=== PATIENT | male | born 1955 | race Caucasian/White ===

== ENCOUNTER 2021-07-17 18:04 | Emergency (ER) | payer BC, SELFPAY ==
[2021-07-17] VITALS (10 sets, daily range): BP systolic 90–148; BP diastolic 47–126; PULSE 51–146; RESP 16–20; TEMP 35.9–37; O2SAT 95–98; BMI 25.9
--- NOTE | 2021-07-17 | ECG_ITS ---
Test Reason : chest palpitations Blood Pressure : / mmHG Vent. Rate : 143 BPM Atrial Rate : 000 BPM P-R Int : 000 ms QRS Dur : 094 ms QT Int : 310 ms P-R-T Axes : 000 037 053 degrees QTc Int : 478 ms Atrial fibrillation with rapid ventricular response with premature ventricular or aberrantly conducted complexes Possible Inferior infarct , age undetermined Abnormal ECG No previous ECGs available Referred By: Generic ED Physician Electronically Signed By:Reji Barrett
--- NOTE | 2021-07-17 | ECG_ITS ---
Test Reason : post cardioversion Blood Pressure : / mmHG Vent. Rate : 052 BPM Atrial Rate : 052 BPM P-R Int : 162 ms QRS Dur : 102 ms QT Int : 416 ms P-R-T Axes : 047 032 045 degrees QTc Int : 386 ms Sinus bradycardia Otherwise normal ECG When compared with ECG of 17-JUL-2021 18:11, Sinus rhythm has replaced Atrial fibrillation Vent. rate has decreased BY [address] no longer depressed in Anterolateral leads T wave inversion no longer evident in Lateral leads Referred By: Giancarlo Zhang Electronically Signed By:GENIA BETH MD
--- NOTE | ~2021-07-17 | XR_ITS ---
EXAMINATION: PORTABLE CHEST 1 VIEW CLINICAL INFORMATION: afib . COMPARISON: No recent pertinent prior studies are available for comparison. TECHNIQUE: Portable frontal view of the chest was obtained. FINDINGS: The lungs are well expanded. No focal infiltrate, effusion, edema, or pneumothorax. Minimal linear subsegmental atelectasis at the left base. Cardiac and mediastinal silhouettes are within normal limits for technique. No acute bony abnormality seen. XR/XR chest 1V IMPRESSION: No evidence of acute disease.
[2021-07-17] MEDS: dilTIAZem HCL 50 MG/10 ML VIAL 25 MG IVPUSH (21:19)
[2021-07-17 21:25] LABS: MANUAL DIFF FLAG NO
[2021-07-17 21:31] LABS: Basophils Absolute Auto 0.1 X10*3/uL (0.0-0.2); Basophils Percent Auto 0.6 % (0-2); Eosinophils Absolute Auto 0.1 X10*3/uL (0.0-0.4); Eosinophils Percent Auto 1.2 % (0-4); Hematocrit 49.8 % (42.0-52.0); Hemoglobin 16.6 g/dl (14.0-18.0); Imm Gran Abs Auto 0.02 X10*3/uL (0.00-0.03); Imm Gran Pct Auto 0.2 % (0.0-0.4); Lymphocytes Absolute Auto 1.7 X10*3/uL (1.2-4.9); Lymphocytes Percent Auto 18.6 % (20-40); Mean Corpuscular HGB Conc 33.3 g/dl (31.0-36.0); Mean Corpuscular Hemoglobin 30.5 pg (27.0-33.0); Mean Corpuscular Volume 91.5 fL (80.0-98.0); Mean Platelet Volume 10.3 fL (9.4-12.4); Monocytes Absolute Auto 0.8 X10*3/uL (0.1-1.2); Monocytes Percent Auto 9.1 % (2-11); Neutrophils Absolute Auto 6.3 x10*3/uL (2.0-8.3); Neutrophils Percent Auto 70.3 % (45-73); Platelet Count 217 X10*3/uL (160-400); Red Blood Count 5.44 X10*6/uL (4.60-5.80); Red Cell Distribution Width 12.5 % (11.0-16.0)
[2021-07-17] MEDS: dilTIAZem HCL 125 MG in 0.9 % Sodium Chloride 100 ML IVCONT (21:35)
[2021-07-17 21:37] LABS: INTERNATIONAL NORM RATIO 0.9 (0.9-1.1); Prothrombin Time 10.5 SEC (9.9-13.0)
[2021-07-17 21:40] LABS: Partial Thromboplastin Time 34.7 SEC (24.1-38.0)
[2021-07-17 21:49] LABS: Alanine Aminotransferase 30 U/L (0-40); Albumin Level 4.6 g/dL (3.5-5.0); Alkaline Phosphatase 69 U/L (39-117); Anion Gap 13 (12-20); Aspartate Amino Transferase 35 U/L (5-37); Bilirubin Total 0.5 mg/dL (0.0-1.0); Blood Urea Nitrogen 14 mg/dL (9-16); Calcium 9.8 mg/dL (8.4-10.2); Carbon Dioxide 25 mmol/L (22-29); Chloride 106 mmol/L (96-108); Creatinine Clr Calc Pharmacy 95.8; Estimated Glomerular Filt Rate > 60; Glucose Random 113 mg/dL (60-115); Sodium 140 mmol/L (135-145); Total Protein 7.4 g/dL (6.5-8.0)
[2021-07-17 21:52] LABS: Troponin-I High Sensitivity 18.6 ng/L (<3.5-35.0)
--- NOTE | 2021-07-17 22:16 | ED_ITS ---
HPI - General Adult General Chief complaint: Arrhythmia/Palpitations Stated complaint: Chest Pain SOB Time Seen by Provider: 07/17/21 20:56 Source: patient History of Present Illness HPI narrative: This is a 65-year-old male who had eaten dinner at around 05:00 o'clock subsequently around 06:00 o'clock noted that his heart seemed to be fast and irregular. The patient felt slightly dizzy. He denies any chest pain or shortness of breath, nausea or sweats. Denies any prior history of an arrhythmia. He denies any history of any heart disease. He does drink a cup of coffee in the morning. He has not had any lower extremity swelling. Denies any history of thyroid disease. The patient drinks alcohol occasionally, denies regular or heavy use. Related Data Allergies Allergy/AdvReac Type Severity Reaction Status Date / Time Unable to Assess Allergy Verified 07/17/21 18:23 Review of Systems Constitutional: Constitutional: Denies excessive sweating Eyes: Eyes: Reports no additional eye complaints ENT: Reports system reviewed and no additional complaints, except as documented Cardiovascular: Cardiovascular: Reports no additional cardiovascular comp laints, Denies chest pain and Denies dyspnea Respiratory: Respiratory: Reports no additional respiratory complaints and Denies dyspnea Gastrointestinal: Gastrointestinal: Reports no additional gastrointestinal complaints Musculoskeletal: Musculoskeletal: Reports no additional musculoskeletal complaints Endocrine: Endocrine: Denies excessive sweating PMFSH Past Medical History Medical History (Updated 07/18/21 @ 01:32 by Giancarlo Zhang MD) Enlarged prostate Sleep apnea Social History Social History Advance Directives: Yes Advance Directives Information Provided: No Advance Directives on File: No Physical Exam ED Vital Signs: Vital Signs - 24 hr 07/17/21 18:20 07/17/21 21:36 07/17/21 21:47 Temperature 96.6 F L Pulse Rate 143 H 145 H 141 H Respiratory Rate 18 16 Blood Pressure 148/126 H 119/82 116/77 Pulse Oximetry 98 97 07/17/21 22:37 07/17/21 22:38 07/17/21 22:43 Temperature 98.4 F 98.4 F Pulse Rate 142 H 135 H 112 H Respiratory Rate 18 20 18 Blood Pressure 130/52 L 106/64 92/47 L Pulse Oximetry 96 98 95 07/17/21 22:44 07/17/21 22:49 07/17/21 22:54 Temperature 98.6 F Pulse Rate 60 58 55 Respiratory Rate 18 18 18 Blood Pressure 90/54 L 94/52 L 97/48 L Pulse Oximetry 96 96 97 07/17/21 23:21 Temperature Pulse Rate 51 Respiratory Rate Blood Pressure 101/50 L Pulse Oximetry 97 BMI result Body Mass Index 25.9 Const Other: No acute distress, overall well-appearing General: no acute distress Orientation/consciousness: patient oriented x3 HENMT Head: Yes normal to inspection General nose exam: Normal external nose present Mouth: moist mucous membranes Throat: Yes posterior oropharynx normal, Yes tonsils normal and Yes uvula midline Eyes Eyelids: Yes eyelids normal Conjunctivae: conjunctivae normal Pupils: Equal, round and reactive pupils present Neck Neck: Yes supple Resp Effort & Inspection: normal respiratory effort Auscultation: clear to auscultation bilaterally Cardio Rate: tachycardic Rhythm: abnormal rhythm irregularly irregular Heart sounds: S1 normal heart sound present, S2 normal heart sound present, no gallops, no murmurs and no rubs GI Inspection: No distended Palpation (GI): Soft to palpation and nontender Auscultation: normal bowel sounds Skin General skin exam: other (Warm and dry) Neuro General: patient oriented x3 and CN's II-XI intact bilaterally Cranial nerves: Yes Equal, round and reactive pupils present Extrem General: Yes no pedal edema Psych Affect: normal affect Attitude: cooperative Course Course Course Narrative: The patient had acute onset of atrial fibrillation this evening had around 18:00. His last meal had been around 17:00. Patient had apparent paroxysmal atrial fibrillation, has no prior history of this. Patient had no other concern ing symptoms. Labs were unremarkable. Electrical cardioversion under procedural sedation was done after sedation with propofol. Consent was obtained prior to the procedure, and time-out was done. The patient was cardioverted with single shock of 120 joules, synchronized. He initially had sinus beats, then had some regular water complex beats before reverting back into sinus rhythm. His Cardizem drip was discontinued just prior to cardioversion. Was mildly bradycardic in the 50s after cardioversion and was bolused normal saline. Recovered from the sedation uneventfully. Repeat EKG done at 22:45 showed sinus bradycardia with a rate of 52, no ST elevation depression, no ectopy, normal QRS axis. Critical care time for this life-threatening illness exclusive of all other billable procedures was approximately 35 minutes including initial evaluation of the patient, ordering tests, x-ray interpretation, EKG interpretation, medical consultation, documentation, reevaluation. Procedures Procedural Sedation Indication: other (Electrical cardioversion) ASA Class: I Mallampati Class: I Time of Last PO Intake: 17:00 Preparation: nuclear monitoring technician applied, pulse oximeter, capnometry used, supplemental O2 applied, suction/airway equipment at bedside and IV secured IV Propofol dose (mg): 150 Patient Tolerated Procedure: well Complications: none Additional Comments: Patient was cardioverted under procedural sedation, require just 1 electrical shock, recovered uneventfully Medical Decision Making Lab Data Result diagrams: 07/17/21 21:21 07/17/21 21: Labs: Lab Results 07/17/21 07/17/21 07/17/21 Range/Units 21:21 21:21 21:21 WBC 9.0 (4.8-10.8) X10*3/uL RBC 5.44 (4.60-5.80) X10*6/uL Hgb 16.6 (14.0-18.0) g/dl Hct 49.8 (42.0-52.0) % MCV 91.5 (80.0-98.0) fL MCH 30.5 (27.0-33.0) pg MCHC 33.3 (31.0-36.0) g/dl RDW 12.5 (11.0-16.0) % Plt Count 217 (160-400) X10*3/uL MPV 10.3 (9.4-12.4) fL Immature Gran % (Auto) 0.2 (0.0-0.4) % Neut % (Auto) 70.3 (45-73) % Lymph % (Auto) 18.6 L (20-40) % Henderson % (Auto) 9.1 (2-11) % Eos % (Auto) 1.2 (0-4) % Baso % (Auto) 0.6 (0-2) % Lymph # (Auto) 1.7 (1.2-4.9) X10*3/uL Henderson # (Auto) 0.8 (0.1-1.2) X10*3/uL Eos # (Auto) 0.1 (0.0-0.4) X10*3/uL Baso # (Auto) 0.1 (0.0-0.2) X10*3/uL Abs Immat Gran (auto) 0.02 (0.00-0.03) X10*3/uL Absolute Neuts (auto) 6.3 (2.0-8.3) x10*3/uL Absolute Nucleated RBC 0.000 (0.0-0.012) X10*3/uL Nucleated RBC % (auto) 0.0 (0.0-0.2) /100WBC PT 10.5 (9.9-13.0) SEC INR 0.9 (0.9-1.1) APTT 34.7 (24.1-38.0) SEC Sodium 140 (135-145) mmol/L Potassium 4.0 (3.3-5.1) mmol/L Chloride 106 (96-108) mmol/L Carbon Dioxide 25 (22-29) mmol/L Anion Gap 13 (12-20) BUN 14 (9-16) mg/dL Creatinine 0.84 (0.5-1.4) mg/dL Estim Creat Clear Calc 95.8 Estimated GFR > 60 Random Glucose 113 (60-115) mg/dL Calcium 9.8 (8.4-10.2) mg/dL Total Bilirubin 0.5 (0.0-1.0) mg/dL AST 35 (5-37) U/L ALT 30 (0-40) U/L Alkaline Phosphatase 69 (39-117) U/L Troponin I High Sens (<3.5-35.0) ng/L Total Protein 7.4 (6.5-8.0) g/dL Albumin 4.6 (3.5-5.0) g/dL 07/17/21 Range/Units 21:21 WBC (4.8-10.8) X10*3/uL RBC (4.60-5.80) X10*6/uL Hgb (14.0-18.0) g/dl Hct (42.0-52.0) % MCV (80.0-98.0) fL MCH (27.0-33.0) pg MCHC (31.0-36.0) g/dl RDW (11.0-16.0) % Plt Count (160-400) X10*3/uL MPV (9.4-12.4) fL Immature Gran % (Auto) (0.0-0.4) % Neut % (Auto) (45-73) % Lymph % (Auto) (20-40) % Henderson % (Auto) (2-11) % Eos % (Auto) (0-4) % Baso % (Auto) (0-2) % Lymph # (Auto) (1.2-4.9) X10*3/uL Henderson # (Auto) (0.1-1.2) X10*3/uL Eos # (Auto) (0.0-0.4) X10*3/uL Baso # (Auto) (0.0-0.2) X10*3/uL Abs Immat Gran (auto) (0.00-0.03) X10*3/uL Absolute Neuts (auto) (2.0-8.3) x10*3/uL Absolute Nucleated RBC (0.0-0.012) X10*3/uL Nucleated RBC % (auto) (0.0-0.2) /100WBC PT (9.9-13.0) SEC INR (0.9-1.1) APTT (24.1-38.0) SEC Sodium (135-145) mmol/L Potassium (3.3-5.1) mmol/L Chloride (96-108) mmol/L Carbon Dioxide (22-29) mmol/L Anion Gap (12-20) BUN (9-16) mg/dL Creatinine (0.5-1.4) mg/dL Estim Creat Clear Calc Estimated GFR Random Glucose (60-115) mg/dL Calcium (8.4-10.2) mg/dL Total Bilirubin (0.0-1.0) mg/dL AST (5-37) U/L ALT (0-40) U/L Alkaline Phosphatase (39-117) U/L Troponin I High Sens 18.6 (<3.5-35.0) ng/L Total Protein (6.5-8.0) g/dL Albumin (3.5-5.0) g/dL ECG Data Attestation: I personally reviewed and interpreted this ECG as follows: Interpretation: Atrial fibrillation with ventricular response of 143. To beat run of with ventricular 1st is apparently conducted complexes. Slight ST depression diffusely consistent with related ischemia. Discharge Plan Discharge Clinical Impression: AF (paroxysmal atrial fibrillation), Premature ventricular contraction on electrocardiogram Patient Disposition: Home, Self-Care Instructions: A-fib (Atrial Fibrillation) (ED) Additional Instructions: Follow-up with cardiology. Avoid caffeine or alcohol use until cleared by cardiology. Return for any new or worsened symptoms Referrals: Primo Quinn MD [Physician] -
[2021-07-17] MEDS: 0.9 % Sodium Chloride 1,000 ML 999 ML IV (22:38)
--- NOTE | 2021-07-18 00:13 | PC.NURSE ---
07/17/20212236 Dr. Zhang, e d tech, RT, and this RN at bedside Pt had 2 IV access, attached to pads, attached to capnography Crash cart at bedside Time Out performed 2237 Dr. Zhang started to administer propofol 2241 Sync cardioversion with 120 J Pt tolerated well 2243 Pt on nsr 2250 Pt back to baseline
== END 2021-07-18 00:30 | disposition home or self-care (01) ==
PROVIDERS: Emergency Provider Emergency Medicine; PCP Family Medicine
DX: I48.0 Paroxysmal atrial fibrillation (principal); I49.3 Ventricular premature depolarization
CPT/HCPCS: 36415; 71045; 80053; 84484; 85025; 85610; 85730; 92960; 93005; 96361; 96365; 96366; 96375; 96376; 99284; 99285

== ENCOUNTER → 2021-07-28 14:38 | Outpatient (BNVA) | payer BC, SELFPAY | PROVIDERS: PCP Family Medicine; Referring Provider Family Medicine; Visit Provider Nurse Practitioner Family | DX: I48.91 Unspecified atrial fibrillation (principal) ==

== ENCOUNTER → 2021-09-08 08:19 | Outpatient (REF) | payer BC, SELFPAY ==
--- NOTE | ~2021-09-08 | NM_ITS ---
Exercise Myocardial perfusion study Indication: Abnormal EKG to evaluate for myocardial ischemia Technique: The patient was brought in for an exercise perfusion study on 09/08/2021. Patient performed exercise as per Lloyd protocol and was injected 30 mCi of sestamibi was given intravenously one target HR was achieved. Images were obtained using the SPECT gamma camera interlaced with the gating device. Images were obtained in supine position. Resting perfusion study was performed on 09/09/2021. Patient was administered 30 mCi of sestamibi intravenously at rest. Images were then obtained in supine position. Images obtained with and without CT attenuation. Total DLP 93 mGy-cm. Images were processed with the software and compared side to side in short axis, horizontal long axis and vertical long axis views. Findings: The stress perfusion study showed on non attenuated images show moderately reduced uptake in the basal inferior as well as mildly reduced uptake in the mid inferior wall of the LV myocardium. Remainder of the LV myocardium is normally perfused. Attenuation corrected images show mildly reduced uptake in the apex of the LV myocardium.. The gated study shows normal LV systolic function with calculated LVEF of 68%. LV cavity is mildly dilated in size. The gated study shows normal systolic wall thickening and contraction of all segments. There is no transient ischemic dilation. Resting study shows non attenuated images show moderately reduced uptake in the inferior wall of the LV myocardium. Remainder of the LV myocardium is normally perfused. Attenuation corrected images show mildly reduced uptake in the apex of the LV myocardium. Gating at rest reveals normal systolic wall motion with ejection fraction at greater than 60 %. The findings are consistent with no clear reversible defect suggestive of ischemia. Normal myocardial perfusion. NM/NM cardiolite stress test Impression: 1. Normal myocardial perfusion 2. Gated LVEF is 68% 3. Transient ischemic dilatation not present Stress EKG is borderline positive for ischemia
--- NOTE | 2021-09-08 08:23 | CA_ITS ---
Transthoracic Echocardiogram Patient (Last, First, Middle): Jadon García, Gender: Male Date of : 1955 Age: 65 Procedure Date: 09/08/2021 Procedure Type: Transthoracic Echocardiogram Location: OP Height: 180.34 cm Weight: 83.92 kg BSA: 2.04 m2 Heart Rate: bpm Sliver Chopper: ROSEY Referring MD: Sheridan Fowler FAMILY SERVICE COUNSELOR-Pepito Symptoms: R94.31 - Abnormal electrocardiogram [ECG] [EKG] Study Quality: Adequate ECG Rhythm: Sinus Bradycardia Conclusions: - Essentially normal study Findings Left Ventricle Normal left ventricular size, thickness, and systolic function. The visually estimated ejection fraction is between 60-65%. Diastolic function is normal for age. Peak GLS is -18.4%, within normal limits. Right Ventricle Normal right ventricular cavity size and systolic function. Atria Both atria are normal in size. There is no evidence of interatrial shunt. Aortic Valve The aortic valve was not well visualized. There is no aortic valve stenosis. There is no aortic valve regurgitation. Mitral Valve Normal mitral valve structure and function. There is trace mitral valve regurgitation. There is no mitral valve stenosis. Pulmonic Valve The pulmonic valve was not well visualized. Tricuspid Valve Likely normal tricuspid valve structure and function. Tricuspid regurgitation envelope is inadequate for calculation of right ventricular systolic pressure. Great Vessels All visible segments of the aorta are normal in size. The pulmonary artery was not well visualized. Venous The inferior vena cava is normal in size. Pericardium/Pleural There is no evidence of pericardial effusion. Prior Study Comparison No prior study available for comparison. Measurements 2D Linear Measurements IVSd: 1.21 0.6-0.9/0.6-1.0 cm LVIDd: 5.16 3.9-5.3/4.2-5.9 cm LVIDd Index: 2.53 2.4-3.2/2.2-3.1 cm/m2 LVIDs: 4.01 2.0-3.6 cm LVPWd: 0.69 0.7-1.1 cm LA Diam: 3.90 2.7-3.8/3.0-4.0 cm LAIDs Index: 1.91 1.5-2.3 cm/m2 LV Mass: 222.62 67-162/88-224 g LV Mass Index: 109.13 43-95/49-115 g/m2 LVOT Diam: 2.50 3.0+(-)1.3 cm 2D Systolic Function EF 4C: 63.60 >55% EF 2C: 64.70 >55% EF BiP: 64.30 >55% Mitral Valve MV Pk E: 0.68 MV PK A: 0.49 MV Decel Time: 158.00 E/A: 1.40 E'Lateral: 11.20 E'Medial: 9.25 E/E' Med: 7.30 E/E' Lat: 6.00 PHT: 46.00 MVA PHT: 4.78 Decel Dare: 4.27 Aortic Valve AoV Pk Seng: 1.22 AoV Mn Seng: 0.78 AoV VTI: 0.29 AoV Pk Grad: 6.00 Aov Mn Grad: 3.00 GENO Cont.VTI: 4.55 LVOT LVOT Pk Seng: 1.17 LVOT Mn Seng: 0.72 LVOT VTI: 0.27 LVOT Pk Grad: 5.00 LVOT Mn Grad: 2.00 LVOT Diam: 2.50 LVOT Area: 4.91 Diastolic Function MV Pk E: 0.68 MV Pk A: 0.49 E/A: 1.40 E'Medial: 9.25 E/E' Med: 7.30 E' Laterial: 11.20 E/E' Lat: 6.00 Right Ventricle TAPSE (mm): 18.00 TVS' Seng: 11.00 Tricuspid Valve RA Press: 3.00 Great Vessels Aorta Sinus of Valsalva: 3.20 2.0-3.5 cm Ao Asc: 3.20 2.1-3.4 cm Pulmonary Veins Pulm Vein S/D 1.00 Pulmonary Valve PV Pk Seng: 0.98 Peak PV Grad: 4.00 Updated in Other Vendor System with Status of Final Marcelo Helton MD electronically signed on 09/08/2021 12:46:39 PM with status of Final
--- NOTE | 2021-09-08 08:23 | HM_ITS ---
Conclusion: 1. Patient was monitored for total period of 2 days and 22 hours 2. Baseline numbers sinus rhythm with average heart of 54 beats per minute on bradycardic side, 33% time heart rate below 60 beats per minute 3. No significant pauses noted 4. Total of 894 PVCs accounting for 0.39% of total beats account for occasional PVCs 5. No patient reported events MTDD
--- NOTE | 2021-09-08 08:23 | CA_ITS ---
Acquisition Time: 2021-09-08 09:10:53 Total Exercise Time: 00:06:31 Test Indications: AFIB, ABN EKG Medications: SEE CHART Protocol: JEWEL Max HR: 141 BPM 89% of Pred: 157 BPM Max BP: 142/078 mmHG Max Work Load: 7.7 METS Exercise stress test with exercise 6 min 31 sec of Jewel protocol, achieving 88% MPHR, with mild sob, no chest discomfort, with isolated PVCs, with normal chronotropic and normotensive response to exercise, with out EKG changes that meet criteria for ischemia, With J point depression with upsloping ST segments at peak, then with borderline ST depressions noted in recovery inferirly and V4-5. Nuclear images pending. Test reviewed with Dr Helton Referred By: Sheridan Fowler Overread By: SHERIDAN FOWLER
== END ==
LOC: HO.CARD 08:19
PROVIDERS: PCP Family Medicine; Visit Provider Nurse Practitioner Family
DX: I48.91 Unspecified atrial fibrillation (principal); R94.31 Abnormal electrocardiogram [ECG] [EKG]
CPT/HCPCS: 78452; 93017; 93242; 93306; A9500; J0280; J2785

== ENCOUNTER 2022-02-05 23:11 | Inpatient (IN) | payer BC, SELFPAY ==
[2022-02-05 23:13] VITALS: BP 138/90; PULSE 88; RESP 18; TEMP 36.4; O2SAT 94; BMI 25.0
--- NOTE | 2022-02-05 23:17 | ECG_ITS ---
Test Reason : palpitations Blood Pressure : / mmHG Vent. Rate : 133 BPM Atrial Rate : 000 BPM P-R Int : 000 ms QRS Dur : 088 ms QT Int : 312 ms P-R-T Axes : 000 048 091 degrees QTc Int : 464 ms Atrial fibrillation with rapid ventricular response Marked ST abnormality, possible inferior subendocardial injury Marked ST abnormality, possible anterior subendocardial injury Abnormal ECG When compared with ECG of 17-JUL-2021 22:45, Atrial fibrillation has replaced Sinus rhythm Vent. rate has increased BY [address] now depressed in Inferior leads ST now depressed in Anterolateral leads Referred By: Generic ED Physician Electronically Signed By:MICHELLE CROSS MD
[2022-02-05 23:24] VITALS: PULSE 132
[2022-02-05] MEDS: dilTIAZem HCL 50 MG/10 ML VIAL 10 MG IVPUSH (23:50)
[2022-02-05 23:52] LABS: Basophils Percent Auto 0.6 % (0-2); Eosinophils Absolute Auto 0.2 X10*3/uL (0.0-0.4); Eosinophils Percent Auto 3.2 % (0-4); Hematocrit 47.4 % (42.0-52.0); Hemoglobin 15.9 g/dl (14.0-18.0); Imm Gran Abs Auto 0.01 X10*3/uL (0.00-0.03); Imm Gran Pct Auto 0.1 % (0.0-0.4); Lymphocytes Absolute Auto 2.4 X10*3/uL (1.2-4.9); Lymphocytes Percent Auto 33.5 % (20-40); MANUAL DIFF FLAG NO; Mean Corpuscular HGB Conc 33.5 g/dl (31.0-36.0); Mean Corpuscular Volume 89.4 fL (80.0-98.0); Monocytes Absolute Auto 0.6 X10*3/uL (0.1-1.2); Neutrophils Percent Auto 54.6 % (45-73); Platelet Count 206 X10*3/uL (160-400); Red Cell Distribution Width 12.8 % (11.0-16.0); White Blood Count 7.3 X10*3/uL (4.8-10.8)
[2022-02-05] MEDS: 0.9 % Sodium Chloride 1,000 ML 999 ML IV (23:52)
[2022-02-06] VITALS (10 sets, daily range): BP systolic 95–126; BP diastolic 56–77; PULSE 44–130; RESP 13–18; TEMP 36.6; O2SAT 95–100
--- NOTE | 2022-02-06 | ED_ITS ---
HPI - Arrhythmia/Palpitations General Chief Complaint: Arrhythmia/Palpitations Stated Complaint: a-fib issue Time Seen by Provider: 02/05/22 23:23 Source: patient Mode of arrival: ambulatory Limitations: no limitations History of Present Illness HPI narrative: Patient's history of paroxysmal atrial fibrillation 1st episode was in 08/07 which was cardioverted after that patient had a detailed workup and seen by c ardiologist. Today at 23:00 patient woke up and noticed irregular heartbeat drove to the ER noticed to have AFib with heart rate fluctuating between 140- 150. Patient felt slightly weak no shortness of breath no dizziness no chest pain patient is not taking any aspirin Related Data Home Medications Medication Instructions Recorded Confirmed dorzolamide 22.3 mg-timolol 6.8 ml ophthalmic (eye) 07/28/21 09/20/21 mg/mL eye drops finasteride 5 mg tablet 5 mg PO DAILY 07/28/21 09/20/21 loratadine 10 mg tablet (Claritin) 10 mg PO DAILY 07/28/21 09/20/21 prednisolone acetate 1 % eye 0 drp ophthalmic (eye) 07/28/21 09/20/21 drops,suspension tamsulosin 0.4 mg capsule 0.4 mg PO DAILY 07/28/21 09/20/21 Previous Rx's Medication Instructions Recorded metoprolol tartrate 25 mg tablet 25 mg PO DAILY PRN for 12/19/21 palpitations #60 tabs Allergies Allergy/AdvReac Type Severity Reaction Status Date / Time Penicillins Allergy Unknown unknown Verified 02/05/22 23:13 Review of Systems Review of Systems: Yes all other systems are reviewed and are negative [facility] Past Medical History Medical History Afib Enlarged prostate Sleep apnea Surgical History Hx of eye surgery Family History Family History Father Pacemaker Mother No problems noted. Social History Social History Patient Tobacco Use Status: Former Tobacco user Advance Directives: No Advance Directives Information Provided: Yes Physical Exam Vital Signs: Vital Signs: Last Vital Signs Temp 97.5 F 11/20/22 23:13 Pulse 115 H 02/06/22 01:53 Resp 13 02/06/22 01:53 BP 126/69 02/06/22 01:53 Pulse Ox 95 02/06/22 01:53 O2 Del Method 02/06/22 01:53 BMI result Body Mass Index 25.0 Appearance: Alert. Oriented X3. No acute distress. Eyes: PERRLA, No Nystagmus ENT: Pharynx normal. Oral Mucosa moist Neck: Normal inspection. Neck supple. CVS: Tachycardic irregularly irregular no murmur rub or gallop. Pulses normal. Respiratory: No respiratory distress. Equal air entry bilateral, no wheezing/rales/rhonchi Abdomen: Soft and nontender. Bowel sounds are present, no mass palpable, no CVA tenderness Skin: Skin warm and dry. Normal skin color. Normal skin turgor. Extremities: No lower extremity edema. No calf tenderness Neuro: Oriented X 3. No motor deficit. Medications Administered Generic Name Dose Route Start Last Admin Trade Name Freq PRN Reason Stop Dose Admin Diltiazem HCl 125 mg/ Sodium 125 mls @ 0 mls/hr 02/06/22 01:00 02/06/22 01:47 Chloride IVCONT 15 mg/hr .Q0M TESSA 15 mls/hr Titration Protocol Per Protocol Discontinued Medications Generic Name Dose Route Start Last Admin Trade Name Freq PRN Reason Stop Dose Admin Apixaban 5 mg 02/06/22 01:22 02/06/22 01:41 Apixaban 5 Mg Tablet PO 02/06/22 01:23 5 mg ONCE ONE Administration Diltiazem HCl 10 mg 02/05/22 23:26 02/05/22 23:50 Diltiazem Hcl 50 Mg/10 Ml Vial IVPUSH 02/05/22 23:27 10 mg STAT STA Administration Diltiazem HCl 20 mg 02/05/22 23:58 02/06/22 00:02 Diltiazem Hcl 50 Mg/10 Ml Vial IVPUSH 02/05/22 23:59 20 mg STAT STA Administration Sodium Chloride 1,000 mls @ 999 mls/hr 02/05/22 23:26 02/05/22 23:52 Ns IV 02/06/22 00:26 999 mls/hr .Q1H1M ONE Administration Metoprolol Tartrate 5 mg 02/06/22 01:26 02/06/22 01:42 Metoprolol Tartrate 5 Mg/5 Ml Vial IVPUSH 02/06/22 01:27 5 mg ONCE ONE Administration MDM - Arrhythmia/Palpitations MDM Narrative Medical decision making narrative: Patient's atrial fibrillation with RVR partial response to IV Cardizem started on Cardizem drip also patient received 5 mg of Lopressor will admit patient start daily is 5 mg for possible cardioversion tomorrow. Patient's chads vascular score is 0. Differential Diagnosis Differential diagnosis: Likely palpitations and artial fibrillation Lab Data Attestation: I reviewed the patient's lab results. Result diagrams: 02/05/22 23:45 02/05/22 23:45 Labs: Lab Results 02/05/22 02/05/22 02/05/22 Range/Units 23:45 23:45 23:45 WBC 7.3 (4.8-10.8) X10*3/uL RBC 5.30 (4.60-5.80) X10*6/uL Hgb 15.9 (14.0-18.0) g/dl Hct 47.4 (42.0-52.0) % MCV 89.4 (80.0-98.0) fL MCH 30.0 (27.0-33.0) pg MCHC 33.5 (31.0-36.0) g/dl RDW 12.8 (11.0-16.0) % Plt Count 206 (160-400) X10*3/uL MPV 10.0 (9.4-12.4) fL Immature Gran % (Auto) 0.1 (0.0-0.4) % Neut % (Auto) 54.6 (45-73) % Lymph % (Auto) 33.5 (20-40) % [place] % (Auto) 8.0 (2-11) % Eos % (Auto) 3.2 (0-4) % Baso % (Auto) 0.6 (0-2) % Lymph # (Auto) 2.4 (1.2-4.9) X10*3/uL [place] # (Auto) 0.6 (0.1-1.2) X10*3/uL Eos # (Auto) 0.2 (0.0-0.4) X10*3/uL Baso # (Auto) 0.0 (0.0-0.2) X10*3/uL Abs Immat Gran (auto) 0.01 (0.00-0.03) X10*3/uL Absolute Neuts (auto) 4.0 (2.0-8.3) x10*3/uL Absolute Nucleated RBC 0.000 (0.0-0.012) X10*3/uL Nucleated RBC % (auto) 0.0 (0.0-0.2) /100WBC PT (10.0-13.1) SEC INR (0.9-1.1) Sodium 140 (135-145) mmol/L Potassium 3.8 (3.3-5.1) mmol/L Chloride 104 (96-108) mmol/L Carbon Dioxide 24 (22-29) mmol/L Anion Gap 16 (12-20) BUN 14 (9-16) mg/dL Creatinine 0.80 (0.5-1.4) mg/dL Estim Creat Clear Calc 102.3 Estimated GFR > 60 Random Glucose 126 H (60-115) mg/dL Calcium 9.5 (8.4-10.2) mg/dL Magnesium 1.9 (1.6-2.6) mg/dL Total Bilirubin 0.6 (0.0-1.0) mg/dL AST 16 D (5-37) U/L ALT 18 (0-40) U/L Alkaline Phosphatase 58 (39-117) U/L Troponin I High Sens 6.6 D (<3.5-35.0) ng/L Total Protein 6.5 (6.5-8.0) g/dL Albumin 4.2 (3.5-5.0) g/dL 02/05/22 Range/Units 23:45 WBC (4.8-10.8) X10*3/uL RBC (4.60-5.80) X10*6/uL Hgb (14.0-18.0) g/dl Hct (42.0-52.0) % MCV (80.0-98.0) fL MCH (27.0-33.0) pg MCHC (31.0-36.0) g/dl RDW (11.0-16.0) % Plt Count (160-400) X10*3/uL MPV (9.4-12.4) fL Immature Gran % (Auto) (0.0-0.4) % Neut % (Auto) (45-73) % Lymph % (Auto) (20-40) % [place] % (Auto) (2-11) % Eos % (Auto) (0-4) % Baso % (Auto) (0-2) % Lymph # (Auto) (1.2-4.9) X10*3/uL [place] # (Auto) (0.1-1.2) X10*3/uL Eos # (Auto) (0.0-0.4) X10*3/uL Baso # (Auto) (0.0-0.2) X10*3/uL Abs Immat Gran (auto) (0.00-0.03) X10*3/uL Absolute Neuts (auto) (2.0-8.3) x10*3/uL Absolute Nucleated RBC (0.0-0.012) X10*3/uL Nucleated RBC % (auto) (0.0-0.2) /100WBC PT 10.9 (10.0-13.1) SEC INR 1.0 (0.9-1.1) Sodium (135-145) mmol/L Potassium (3.3-5.1) mmol/L Chloride (96-108) mmol/L Carbon Dioxide (22-29) mmol/L Anion Gap (12-20) BUN (9-16) mg/dL Creatinine (0.5-1.4) mg/dL Estim Creat Clear Calc Estimated GFR Random Glucose (60-115) mg/dL Calcium (8.4-10.2) mg/dL Magnesium (1.6-2.6) mg/dL Total Bilirubin (0.0-1.0) mg/dL AST (5-37) U/L ALT (0-40) U/L Alkaline Phosphatase (39-117) U/L Troponin I High Sens (<3.5-35.0) ng/L Total Protein (6.5-8.0) g/dL Albumin (3.5-5.0) g/dL ECG Data Attestation: I personally reviewed and interpreted this ECG as follows: Interpretation: Atrial fibrillation with ventricular rate [address] changes anterior and inferior leads no acute ST elevation or ischemia Discharge Plan Discharge Clinical Impression: Atrial fibrillation with rapid ventricular response Patient Disposition: Admitted As Inpatient
--- NOTE | 2022-02-06 | ECG_ITS ---
Test Reason : rythm change Blood Pressure : / mmHG Vent. Rate : 045 BPM Atrial Rate : 045 BPM P-R Int : 174 ms QRS Dur : 102 ms QT Int : 446 ms P-R-T Axes : 052 053 064 degrees QTc Int : 385 ms Sinus bradycardia Nonspecific T wave abnormality Abnormal ECG When compared with ECG of 05-FEB-2022 23:17, Sinus rhythm has replaced Atrial fibrillation Vent. rate has decreased BY [address] no longer depressed in Inferior leads ST no longer depressed in Anterolateral leads Referred By: Aubree Betts Electronically Signed By:MICHELLE CROSS MD
[2022-02-06 00:01] LABS: Prothrombin Time 10.9 SEC (10.0-13.1)
[2022-02-06] MEDS: dilTIAZem HCL 50 MG/10 ML VIAL 20 MG IVPUSH (00:02)
--- OUTSIDE RECORDS SUMMARY | 2022-02-06 00:10 | XMS_ITS | Continuity of Care Document ---
:1955 Author Organization [facility] Address [address] [place] [address]- Care Team Providers Name Role Phone Anca KHAN, Jodie Plunkett Primary Care Physician Encounter [facility] [place] Date(s): 03/21/21 - 04/20/21 [facility] [address] [place] [address]- Attending Physician: Guadalupe Andrews Admitting Physician: AdmGuadalupe siegel Referring Physician: AdmtrGuadalupe Allergies, Adverse Reactions, Alerts Substance Reaction Severity Status penicillin Unknown Active Brimonidine1 Shortness of breath Active 1shortness of breathe Immunizations Given and Recorded Vaccine Date Status Refusal Reason SARS-CoV-2 (COVID-19) mRNA-1273 vaccine 02/24/21 Recorded SARS-CoV-2 (COVID-19) Ad26 vaccine 06/19/20 Recorded tetanus/diphtheria/pertussis, acel(Tdap) 12/12/07 Given Medications dorzolamide-timolol 2.23%-0.68% ophthalmic solution 1 drops, Eyes, Both, 3 times a day, # 5 mL, 0 Refills, Maintenance, 11/08/18 8:48:14 EDT, Solution Start Date: 11/08/18 Status: OrderedFlomax 0.4 mg oral capsule 0.4 mg, 1, capsule, By Mouth, Daily at bedtime, # 30 capsule, Refills 0, Maintenance, 11/08/18 8:52:06 EDT Start Date: 11/08/18 Status: Ordered Social History Social History Type Response Smoking Status Former smoker, quit more kathy n 30 days ago entered on: 03/21/21 Sex Medical Equipment Implanted Date:02/19/20 Target Site:Eye Left Description Quantity MRI [employer] Model TISSUE TUTOPLAST SCLERA 1X3CM - IOP ([id number]) 1 [employer] Unknown SUHA: No Information Assigning Authority: FDA Implanted Date:11/14/18 Target Site:Eye Right Description Quantity MRI Company Model TISSUE TUTOPLAST SCLERA 1X3CM - IOP ([id number]) 1 [employer] Unknown SUHA: No Information Assigning Authority: FDA
--- OUTSIDE RECORDS SUMMARY | 2022-02-06 00:10 | XMS_ITS | Continuity of Care Document ---
:1955 Author Organization [facility] Address [address] [place] [address]- Care Team Providers Name Role Phone Anca KHAN, Jodie Plunkett Primary Care Physician Encounter [facility] [place] Date(s): 07/08/21 - 08/07/[address] [address]- Attending Physician: Guadalupe Andrews Admitting Physician: Guadalupe Andrews Referring Physician: AdmtrGuadalupe Allergies, Adverse Reactions, Alerts [...] 11/08/18 8:52:06 EDT Start Date: 11/08/18 Status: OrderedFurosemide Daily, 0 Refills, Maintenance, 07/08/21 13:53:00 EDT, Partial fill upon patient request if the prescription is for a schedule II opioid drug. Start Date: 07/08/21 Status: Ordered Problem List Condition Effective Dates Status Health Status Informant Chronic insomnia(Confirmed) Active Obstructive sleep apnea(Confirmed) Active Social History Social History Type Response Smoking Status Former smoker, quit more kathy n 30 days ago entered on: 03/21/21 Sex Medical Equipment Implanted Date:02/19/20 Target Site:Eye Left Description Quantity MRI Company Model TISSUE TUTOPLAST SCLERA 1X3CM - IOP ([id number]) 1 [employer] Unknown SUHA: No Information Assigning Authority: FDA Implanted Date:11/14/18 Target Site:Eye Right Description Quantity MRI Company Model TISSUE TUTOPLAST SCLERA 1X3CM - IOP ([id number]) 1 [employer] Unknown SUHA: No Information Assigning Authority: FDA
--- OUTSIDE RECORDS SUMMARY | 2022-02-06 00:10 | XMS_ITS | Continuity of Care Document ---
:1955 Author Organization [facility] Address [address] [place] [address]- Care Team Providers Name Role Phone Beba Ortiz MD Primary Care Physician [phone] Encounter [facility] [place] Date(s): 11/08/20 - 12/08/20 [facility] [address] [place], [place] [address] Allergies, Adverse Reactions, Alerts Substance Reaction Severity Status penicillin Unknown Active Brimonidine1 Shortness of breath Active 1shortness of breathe Immunizations Given and Recorded Vaccine Date Status Refusal Reason tetanus/diphtheria/pertussis, acel(Tdap) 12/12/07 Given Medications Belsomra = 10 mg, By Mouth, Daily at bedtime, 0 Refills, Maintenance, 11/08/18 8:49:14 EDT Start Date: 11/08/18 Status: Ordereddorzolamide-timolol 2.23%-0.68% ophthalmic solution 1 drops, Eyes, Both, 3 times a day, # 5 mL, 0 Refills, Maintenance, 11/08/18 8:48:14 EDT, Solution Start Date: 11/08/18 Status: OrderedFlomax 0.4 mg oral capsule 0.4 mg, 1, capsule, By Mouth, Daily at bedtime, # 30 capsule, Refills 0, Maintenance, 11/08/18 8:52:06 EDT Start Date: 11/08/18 Status: Ordered Medical Equipment Implanted Date:02/19/20 Target Site:Eye Left Description Quantity [employer] Model TISSUE TUTOPLAST SCLERA 1X3CM - IOP ([id number]) 1 [employer] Unknown SUHA: No Information Assigning Authority: FDA Implanted Date:11/14/18 Target Site:Eye Right Description Quantity MRI Company Model TISSUE TUTOPLAST SCLERA 1X3CM - IOP (24965) 1 [employer] Unknown SUHA: No Information Assigning Authority: FDA
--- OUTSIDE RECORDS SUMMARY | 2022-02-06 00:10 | XMS_ITS | Continuity of Care Document ---
:1955 Author Organization [facility] Address [address] [place] [address]- Care Team Providers Name Role Phone Anca KHAN, Jodie Plunkett Primary Care Physician [phone] Encounter [facility] [place] Date(s): 07/08/21 - 07/15/21 [facility] [address] [place] [address]- Encounter Diagnosis Obstructive sleep apnea (Discharge Diagnosis) - 07/08/21 Chronic insomnia (Discharge Diagnosis) - 07/08/21 Attending Physician: Neto Gray MD Admitting Physician: Neto Gray MD Referring Physician: Jodie March MD Allergies, Adverse Reactions, Alerts Substance Reaction Severity [...] Chronic insomnia(Confirmed) Active Obstructive sleep apnea(Confirmed) Active Diagnosis Diagnosis Type Effective Dates Health Clinical Infor mant Status Service Obstructive sleep Discharge 07/08/21 apnea Diagnosis Chronic insomnia Discharge 07/08/21 Diagnosis Vital Signs Most recent to oldest [Reference Range]: 1 Height 180.34 cm (07/08/21 1:50 PM) Weight 84 kg (07/08/21 1:50 PM) Body Mass Index [18.5-24.99] 25.83 *H* (07/08/21 1:50 PM) Dry Weight 84 kg (07/08/21 1:50 PM) Weight Obtained Via Patient/family stated (07/08/21 1:50 PM) Dry Weight Obtained Via Patient/family stated (07/08/21 1:50 PM) Social History Social History Type Response Smoking Status Former smoker, quit more kathy n 30 days ago entered on: 03/21/21 Sex Medical Equipment Implanted Date:02/19/20 Target Site:Eye Left Description Quantity MRI Company Model TISSUE TUTOPLAST SCLERA 1X3CM - IOP (03201) 1 [employer] Unknown SUHA: No Information Assigning Authority: FDA Implanted Date:11/14/18 Target Site:Eye Right Description Quantity MRI Company Model TISSUE TUTOPLAST SCLERA 1X3CM - IOP ([id number]) 1 [employer] Unknown SUHA: No Information Assigning Authority: FDA
--- OUTSIDE RECORDS SUMMARY | 2022-02-06 00:10 | XMS_ITS | Continuity of Care Document ---
:1955 Author Organization [facility] Address [address] [place] [address]- Care Team Providers Name Role Phone Anca KHAN, Jodie Plunkett Primary Care Physician En[place] [facility] [place] Date(s): 04/01/21 - 05/01/21 [facility] [address] [place], [place] [address] Allergies, Adverse Reactions, Alerts Substance Reaction Severity [...] Model TISSUE TUTOPLAST SCLERA 1X3CM - IOP ([id number]) 1 [employer] Unknown SUHA: No Information Assigning Authority: FDA Implanted Date:11/14/18 Target Site:Eye Right Description Quantity MRI Company Model TISSUE TUTOPLAST SCLERA 1X3CM - IOP ([id number]) 1 [employer] Unknown SUHA: No Information Assigning Authority: FDA
--- OUTSIDE RECORDS SUMMARY | 2022-02-06 00:10 | XMS_ITS | Continuity of Care Document ---
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) - 03/21/21 Hypertension (Discharge Diagnosis) - 03/21/21 BPH associated with nocturia (Discharge Diagnosis) - 03/21/21 RLS (restless legs syndrome) (Discharge Diagnosis) - 03/21/21 Vitamin D deficiency (Discharge Diagnosis) - 03/21/21 Screening for hyperlipidemia (Discharge Diagnosis) - 03/21/21 Attending Physician: Anca KHAN, Jodie Plunkett Allergies, Adverse Reactions, Alerts Substance Reaction Severity [...] 8:52:06 EDT Start Date: 11/08/18 Status: Ordered Problem List Diagnosis Diagnosis Type Effective Dates Health Clinical Infor [facility] Status Service Nasal congestion Discharge 03/21/21 Diagnosis LI on CPAP Discharge 03/21/21 Diagnosis Allergic rhinitis Discharge 03/21/21 Diagnosis Anxiety Discharge 03/21/21 Diagnosis Arthritis of hand Discharge 03/21/21 Diagnosis Open-angle glaucoma Discharge 03/21/21 of both eyes Diagnosis Hypertension Discharge 03/21/21 Diagnosis BPH associated with Discharge 03/21/21 nocturia Diagnosis RLS (restless legs Discharge 03/21/21 syndrome) Diagnosis Vitamin D deficiency Discharge 03/21/21 Diagnosis Screening for Discharge 03/21/21 hyperlipidemia Diagnosis Vital Signs Most recent to oldest [Reference Range]: 1 Height 180.34 cm (03/21/21 1:54 PM) Weight 84 kg (03/21/21 1:54 PM) Body Mass Index [18.5-24.99] 25.83 *H* (03/21/21 1:54 PM) Weight Obtained Via Patient/family stated (03/21/21 1:54 PM) Social History Social History Type Response Smoking Status Former smoker, quit more kathy n 30 days ago entered on: 03/21/21 Sex Medical Equipment Implanted Date:02/19/20 Target Site:Eye Left Description Quantity MRI Company Model TISSUE TUTOPLAST SCLERA 1X3CM - IOP ([id number]) 1 [employer] Unknown SUHA: No Information Assigning Authority: FDA Implanted Date:11/14/18 Target Site:Eye Right Description Quantity MRI Company Model TISSUE TUTOPLAST SCLERA 1X3CM - IOP ([id number]) 1 [employer] Unknown SUHA: No Information Assigning Authority: FDA
--- OUTSIDE RECORDS SUMMARY | 2022-02-06 00:10 | XMS_ITS | Continuity of Care Document ---
:1955 Author Organization [facility] Address [address] [place] [address]- Care Team Providers Name Role Phone Angel KHAN, Beba Boyle Primary Care Physician [place] [facility] [place]14[place] - 03/16/21 [facility] [address] [place], [place] [address] Allergies, Adverse Reactions, Alerts Substance Reaction Severity [...] Implanted Date:02/19/20 Target Site:Eye Left Description Quantity [employer] Model TISSUE TUTOPLAST SCLERA 1X3CM - IOP ([id number]) 1 [employer] Unknown SUHA: No Information Assigning Authority: FDA Implanted Date:11/14/18 Target Site:Eye Right Description Quantity [employer] Model TISSUE TUTOPLAST SCLERA 1X3CM - IOP (52267) 1 [employer] Unknown SUHA: No Information Assigning Authority: FDA
--- OUTSIDE RECORDS SUMMARY | 2022-02-06 00:10 | XMS_ITS | Continuity of Care Document ---
:1955 Author Organization [facility] Address [address] [place] [address]- Care Team Providers Name Role Phone Anca KHAN, Jodie Plunkett Primary Care Physician Encounter [facility] [place] Date(s): 07/19/21 - 08/18/21 [facility] [address] [place], [place] [address] Allergies, Adverse Reactions, Alerts Substance Reaction [...] Date:02/19/20 Target Site:Eye Left Description Quantity MRI [employer] Model TISSUE TUTOPLAST SCLERA 1X3CM - IOP ([id number]) 1 [employer] Unknown SUHA: No Information Assigning Authority: FDA Implanted Date:11/14/18 Target Site:Eye Right Description Quantity MRI [employer] Model TISSUE TUTOPLAST SCLERA 1X3CM - IOP (02778) 1 [employer] Unknown SUHA: No Information Assigning Authority: FDA
[2022-02-06 00:15] LABS: Troponin-I High Sensitivity 6.6 ng/L (<3.5-35.0)
[2022-02-06 00:32] LABS: Alanine Aminotransferase 18 U/L (0-40); Albumin Level 4.2 g/dL (3.5-5.0); Alkaline Phosphatase 58 U/L (39-117); Anion Gap 16 (12-20); Aspartate Amino Transferase 16 U/L (5-37); Bilirubin Total 0.6 mg/dL (0.0-1.0); Blood Urea Nitrogen 14 mg/dL (9-16); Calcium 9.5 mg/dL (8.4-10.2); Carbon Dioxide 24 mmol/L (22-29); Chloride 104 mmol/L (96-108); Creatinine Clr Calc Pharmacy 102.3; Estimated Glomerular Filt Rate > 60; Glucose Random 126 mg/dL (60-115); Magnesium 1.9 mg/dL (1.6-2.6); Potassium 3.8 mmol/L (3.3-5.1); Sodium 140 mmol/L (135-145); Total Protein 6.5 g/dL (6.5-8.0)
[2022-02-06] MEDS: dilTIAZem HCL 125 MG in 0.9 % Sodium Chloride 100 ML 10 MG IVCONT (01:31)
[2022-02-06] MEDS: Apixaban 5 MG TABLET PO (01:41)
[2022-02-06] MEDS: Metoprolol Tartrate 5 MG/5 ML VIAL IVPUSH (01:42)
--- NOTE | 2022-02-06 01:48 | PC.NURSE ---
pt a&ox3, 20G IV placed L AC, afib/SVT w HR around 140s, medicated w 10mg followed by 20mg diltiazem per provider order, 1L NS started. HR decreasing to 90s w spiked into 120-140s. HR increasing to 160s w exertion - pt standing to urinate. provider notified. 125mg (25ml) diltiazem added to 100ml NS, titration started at 10mg/hr per protocol and increased to 15mg/hr after 15 min, pt HR remaining in 120-130s, other vss, pt denies any pain at this time. pt pending admission order/cardiology consult.
--- NOTE | 2022-02-06 03:27 | PC.NURSE ---
Assumed care of patient.
--- NOTE | 2022-02-06 03:30 | PC.NURSE ---
Paused cardizem drip with HR as low as 78. Notified hospitalist. Will continue to monitor closely. Will reassess in 30 minutes.
--- NOTE | 2022-02-06 03:55 | PC.NURSE ---
Pt states he still feels like his heart is jumping . When pt got up to urinate HR increased as high as 136.
--- NOTE | 2022-02-06 05:02 | PC.NURSE ---
Patient's heart rate while cardizem drip paused ranges between between 129-137. Cardizem drip resumed at same rate/dose. Hospitalist notified.
[2022-02-06] MEDS: Digoxin 0.5 MG/2 ML AMPUL 0.25 MG IVPUSH (05:21)
--- NOTE | 2022-02-06 05:24 | PC.NURSE ---
Administered digoxin per MAR.
[2022-02-06 05:43] LABS: COVID-19 Test Negative (Negative)
[2022-02-06 06:02] LABS: MANUAL DIFF FLAG NO
--- NOTE | 2022-02-06 06:11 | PC.NURSE ---
Report given to SPENCER Carl in overflow.
[2022-02-06 06:22] LABS: Anion Gap 12 (12-20); Blood Urea Nitrogen 9 mg/dL (9-16); Calcium 9.1 mg/dL (8.4-10.2); Carbon Dioxide 24 mmol/L (22-29); Chloride 108 mmol/L (96-108); Estimated Glomerular Filt Rate > 60; Glucose Random 115 mg/dL (60-115); Potassium 4.1 mmol/L (3.3-5.1); Sodium 140 mmol/L (135-145)
[2022-02-06 06:25] LABS: Basophils Percent Auto 0.4 % (0-2); Eosinophils Absolute Auto 0.2 X10*3/uL (0.0-0.4); Eosinophils Percent Auto 1.8 % (0-4); Hematocrit 47.8 % (42.0-52.0); Imm Gran Abs Auto 0.02 X10*3/uL (0.00-0.03); Imm Gran Pct Auto 0.2 % (0.0-0.4); Lymphocytes Absolute Auto 1.9 X10*3/uL (1.2-4.9); Lymphocytes Percent Auto 22.9 % (20-40); Mean Corpuscular HGB Conc 33.5 g/dl (31.0-36.0); Mean Corpuscular Hemoglobin 29.7 pg (27.0-33.0); Mean Corpuscular Volume 88.7 fL (80.0-98.0); Mean Platelet Volume 10.6 fL (9.4-12.4); Monocytes Absolute Auto 0.7 X10*3/uL (0.1-1.2); Monocytes Percent Auto 8.6 % (2-11); Neutrophils Absolute Auto 5.4 x10*3/uL (2.0-8.3); Neutrophils Percent Auto 66.1 % (45-73); Platelet Count 240 X10*3/uL (160-400); Red Blood Count 5.39 X10*6/uL (4.60-5.80); Red Cell Distribution Width 12.8 % (11.0-16.0); White Blood Count 8.1 X10*3/uL (4.8-10.8)
--- NOTE | 2022-02-06 06:27 | P.HPHOSP_ITS ---
History of Present Illness Date of Service: 02/06/22 Chief Complaint: Irregular heartbeat This is a 66-year-old male with past medical history of paroxysmal AFib, presents the hospital with complaints of tachycardia. Patient reports that he was 1st diagnosed with AFib in July, he is status post cardioversion few months ago, he reports that around 23:00 patient woke up with palpitations. He feels generally weak, denies any chest pain, no shortness of breath, and has not been on anticoagulation for his AFib. He denies any dizziness, no nausea or vomiting, no diarrhea constipation, no urinary symptoms and no lower extremity edema. On arrival to the ED patient hemodynamically stable with no significant abnormal vitals except for heart rate in the 130s to 150s, Labs are significant for WBC count of 7.3, hemoglobin 15.9, hematocrit 47.4, labs otherwise unremarkable, COVID-19 negative, chest x-ray negative, patient has Patient placed on Cardizem drip and will be admitted for further management Review of Systems Review of Systems: Yes all other systems are reviewed and are negative [facility] Medical History Afib Enlarged prostate Sleep apnea Family History Father Pacemaker Mother No problems noted. Surgical History Hx of eye surgery Social History Alcohol intake: never Patient Tobacco Use Status: Former Tobacco user Smoked in Last 30 Days: No Use of substances other than those prescribed or required for medical reasons: No Advance Directives: No Advance Directives Information Provided: Yes Meds Allergies Allergy/AdvReac Type Severity Reaction Status Date / Time Penicillins Allergy Unknown unknown Verified 02/05/22 23:13 Active Medications: Current Medications Acetaminophen (Acetaminophen 325 Mg Tablet) 650 mg PO Q6H PRN PRN Reason: Pain, Mild (Pain Scale 1-3) Docusate Sodium (Docusate Sodium 100 Mg Capsule) 100 mg PO BID [facility] Diltiazem HCl 125 mg/ Sodium (Chloride) 125 mls @ 0 mls/hr IVCONT .Q0M [facility]; Protocol Last Titration: 02/06/22 01:47 Dose: 15 mg/hr, 15 mls/hr Ondansetron HCl (Ondansetron Hcl 4 Mg/2 Ml Vial) 4 mg IVPUSH Q8H PRN PRN Reason: Nausea and Vomiting Sodium Chloride (0.9 % Sodium Chloride Flush 3 Ml Syringe) [address] [facility] Home Medications Medication Instructions Recorded Confirmed Last Taken Type dorzolamide 22.3 mg-timolol 6.8 ml ophthalmic (eye) 07/28/21 09/20/21 Unknown History mg/mL eye drops finasteride 5 mg tablet 5 mg PO DAILY 07/28/21 09/20/21 Unknown History loratadine 10 mg tablet (Claritin) 10 mg PO DAILY 07/28/21 09/20/21 Unknown History prednisolone acetate 1 % eye 0 drp ophthalmic (eye) 07/28/21 09/20/21 Unknown History drops,suspension tamsulosin 0.4 mg capsule 0.4 mg PO DAILY 07/28/21 09/20/21 Unknown History Physical Exam Vital Signs and Narrative: Vital Signs: Last Vital Signs Temp 97.9 F 02/06/22 05:00 Pulse 117 H 02/06/22 05:00 Resp 13 02/06/22 05:00 BP 117/72 02/06/22 05:00 Pulse Ox 100 02/06/22 05:00 O2 Del Method 02/06/22 05:00 BMI result Body Mass Index 25.0 Const: General: cooperative and no acute distress Orientation/consciousness: patient oriented x3 Eyes: General: appearance normal, both eyes and all related structures Pupils: Equal, round and reactive pupils present Resp: Effort & Inspection: normal respiratory effort Auscultation: clear to auscultation bilaterally Cardio: Other: Tachycardic,irregular rhythm GI: Palpation (GI): Soft to palpation Auscultation: normal bowel sounds Skin: General skin exam: no rashes or lesions noted Neuro: General: patient oriented x3 Cranial nerves: Yes Equal, round and reactive pupils present Cognition (Neuro): normal cognition Extrem: General: Yes normal to inspection and Yes no pedal edema Results Labs CBC and Chem 7: 02/06/22 05:30 02/06/22 05:30 Labs: Laboratory Results - last 24 hr 02/05/22 02/05/22 02/05/22 23:45 23:45 23:45 MCV 89.4 MCH 30.0 MCHC 33.5 RDW 12.8 Plt Count 206 MPV 10.0 Immature Gran % (Auto) 0.1 Neut % (Auto) 54.6 Lymph % (Auto) 33.5 [place] % (Auto) 8.0 Eos % (Auto) 3.2 Baso % (Auto) 0.6 Lymph # (Auto) 2.4 [place] # (Auto) 0.6 Eos # (Auto) 0.2 Baso # (Auto) 0.0 Abs Immat Gran (auto) 0.01 Absolute Neuts (auto) 4.0 Absolute Nucleated RBC 0.000 Nucleated RBC % (auto) 0.0 PT INR Anion Gap 16 Estim Creat Clear Calc 102.3 Estimated GFR > 60 Random Glucose 126 H Calcium 9.5 Magnesium 1.9 Total Bilirubin 0.6 AST 16 D ALT 18 Alkaline Phosphatase 58 Troponin I High Sens 6.6 D Total Protein 6.5 Albumin 4.2 COVID-19 (ANIL) COVID-19 Clin Com 02/05/22 02/06/22 02/06/22 23:45 05:03 05:30 MCV 88.7 MCH 29.7 MCHC 33.5 RDW 12.8 Plt Count 240 MPV 10.6 Immature Gran % (Auto) 0.2 Neut % (Auto) 66.1 Lymph % (Auto) 22.9 [place] % (Auto) 8.6 Eos % (Auto) 1.8 Baso % (Auto) 0.4 Lymph # (Auto) 1.9 [place] # (Auto) 0.7 Eos # (Auto) 0.2 Baso # (Auto) 0.0 Abs Immat Gran (auto) 0.02 Absolute Neuts (auto) 5.4 Absolute Nucleated RBC 0.000 Nucleated RBC % (auto) 0.0 PT 10.9 INR 1.0 Anion Gap Estim Creat Clear Calc Estimated GFR Random Glucose Calcium Magnesium Total Bilirubin AST ALT Alkaline Phosphatase Troponin I High Sens Total Protein Albumin COVID-19 (ANIL) Negative COVID-19 Clin Com See Note 02/06/22 05:30 MCV MCH MCHC RDW Plt Count MPV Immature Gran % (Auto) Neut % (Auto) Lymph % (Auto) [place] % (Auto) Eos % (Auto) Baso % (Auto) Lymph # (Auto) [place] # (Auto) Eos # (Auto) Baso # (Auto) Abs Immat Gran (auto) Absolute Neuts (auto) Absolute Nucleated RBC Nucleated RBC % (auto) PT INR Anion Gap 12 Estim Creat Clear Calc 117.0 Estimated GFR > 60 Random Glucose 115 Calcium 9.1 Magnesium Total Bilirubin AST ALT Alkaline Phosphatase Troponin I High Sens Total Protein Albumin COVID-19 (ANIL) COVID-19 Clin Com Assessment and Plan (1) Atrial fibrillation with rapid ventricular response: Status: Acute Plan 66-year-old male with past medical history of paroxysmal AFib status post cardioversion presents to the hospital in AFib with RVR # AFib with RVR - CHADSvasc score of 0 - unclear underlying etiology for him going into AFib with RVR - no acute infection - hemodynamically stable - has been on Cardizem drip 15 milligrams/hour with minimal response - given 0.25 of digoxin with minimal response - at this time will treat with amiodarone drip - cardiology consulted DVT prophylaxis: Lovenox Given patient's requirement for AFib control with IV infusion patient require minimum 2 night inpatient hospital stay for further management and evaluation Quality Stroke Does the patient have a stroke diagnosis?: No VTE Prior VTE?: No VTE Risk Level:: Medical - low VTE Device Contraindication: Treatment Not Indicated VTE Drug Contraindication: Treatment Not Indicated
--- NOTE | 2022-02-06 06:37 | PC.NURSE ---
Pt. transported from main ED to Overflow dept. bed 2. Pt. is on pvc monitor at this time.
--- NOTE | 2022-02-06 06:40 | PC.NURSE ---
Notified Brien Adkins MD that pt. is on max. rate of Cardizem gtt and HR still remains tachycardic to 110s-low 130s. Also notified that BP is now softer now than it has been previously (now - systolic 90s). Awaiting response at this time.
--- NOTE | 2022-02-06 06:49 | PC.NURSE ---
Provider notified that pt.'s rate seems more controlled while remaining on the Cardizem gtt - haven't switched to Amio. gtt yet. Continue to monitor HR at this time before switching to Amio. gtt
--- NOTE | 2022-02-06 07:57 | PC.NURSE ---
pt requesting to get up to walk to the bathroom. recommended use of urinal at this time. Pt currently maxed out on Diltiazem gtt at 15 ml/hr. HR range between 86 and 120s when pt at rest. pt stood at bedside to use urinal, HR spiked to 170s, recovery took approx 10 min for pt HR to come below 130s. Order for Amiodarone in MAR from overnight provider with verbal order to hold at this time until day time provider able to assess pt. pt currently resting comfortably with no complaints other than the heart palpitations, denies SOB, diff breathing, CP, N/V.
[2022-02-06] MEDS: Enoxaparin Sodium 40 MG/0.4 ML SYRINGE SUBCUT (08:37)
[2022-02-06] MEDS: 0.9 % Sodium Chloride Flush 3 ML SYRINGE IVFLUSH (08:37)
--- NOTE | 2022-02-06 09:27 | PHA.MEDREC ---
Pharmacy Consult ? Medication Reconciliation Pharmacy has completed the medication reconciliation. Patient confirmed all medicaitons. Anusha Portillo, EronD
[2022-02-06 09:44] LABS: Thyroid Stimulating Hormone 0.64 uIU/mL (0.32-4.0)
[2022-02-06] MEDS: dilTIAZem HCL 125 MG in 0.9 % Sodium Chloride 100 ML 15 MG IVCONT (09:46)
--- NOTE | 2022-02-06 09:51 | PC.NURSE ---
Dr. Quinn down to see pt. at this time, MD order to hold Digoxin IV Push and Hold Amiodarone bolus and drip. to place new orders
--- NOTE | 2022-02-06 10:01 | P.CONCA_ITS ---
History of Present Illness History of Present Illness Date of Service: 02/06/22 Chief complaint: afib, w rvr Narrative: This is a cardiology consultation regarding atrial fibrillation. Patient has history of paroxysmal atrial fibrillation. In July, he came with atrial fibrillation rapid rate. Due to low blood pressures, he underwent cardioversion. He also had resting sinus bradycardia and also low blood pressures and hence was not put on any medications. Also not on any anticoagul ation baseline due to low thromboembolic risk. He states he was doing okay for about 6 months or so but last night around 23:00 or so he started noticing palpitations. This led to the ER visit. He has been put on IV diltiazem drip, IV digoxin but still remains in atrial fibrillation with rapid rate. He still feels palpitations but does not have any other cardiac symptoms. Review of Systems Review of Systems: Yes all other systems are reviewed and are negative Constitutional: Constitutional: Reports as per HPI Eyes: Eyes: Reports as per HPI ENT: Reports as per HPI Cardiovascular: Cardiovascular: Reports as per HPI, Denies acrocyanosis, Denies cool extremities, Denies chest pain, Denies leg edema, Denies lightheadedness, Reports palpitations and Denies dyspnea Respiratory: Respiratory: Reports as per HPI, Reports no additional respiratory complaints and Denies dyspnea Gastrointestinal: Gastrointestinal: Reports as per HPI and Reports no additional gastrointestinal complaints Genitourinary: Genitourinary: Reports no additional male genitourinary com plaints and Reports as per HPI Musculoskeletal: Musculoskeletal: Reports no additional musculoskeletal complaints and Reports as per HPI Integumentary/Breasts: Skin/Breast: Reports system reviewed and no additional complaints, except as docu Neurologic: Reports system reviewed and no additional complaints, except as documented and Reports as per HPI Psychiatric: Psychiatric: Reports no additional psychiatric complaints and Reports as per HPI Endocrine: Endocrine: Reports no additional endocrine complaints, Reports as per HPI and Reports palpitations Hematologic/Lymphatic: Hematologic/Lymphatic: Reports no additional hematologic/lymphatic complaints and Reports as per HPI Allergic/Immunologic: Allergic/Immunologic: Reports no additional allergic/immunologic complaints and Reports as per HPI PMFSH Past Medical History Medical History Afib Enlarged prostate Sleep apnea Family History Family History Father Pacemaker Mother No problems noted. Surgical History Surgical History Hx of eye surgery Social History Social History Alcohol intake: never Patient Tobacco Use Status: Former Tobacco user Smoked in Last 30 Days: No Use of substances other than those prescribed or required for medical reasons: No Advance Directives: No Advance Directives Information Provided: Yes Meds Allergies Allergy/AdvReac Type Severity Reaction Status Date / Time Penicillins Allergy Unknown unknown Verified 02/05/22 23:13 Active Medications: Current Medications Acetaminophen (Acetaminophen 325 Mg Tablet) 650 mg PO Q6H PRN PRN Reason: Pain, Mild (Pain Scale 1-3) Digoxin (Digoxin 0.5 Mg/2 Ml Ampul) 0.125 mg IVPUSH Q6H [facility] Stop: 02/06/22 15:01 Last Admin: 02/06/22 09:48 Dose: Not Given Docusate Sodium (Docusate Sodium 100 Mg Capsule) 100 mg PO BID [facility] Last Admin: 02/06/22 09:48 Dose: Not Given Enoxaparin Sodium (Enoxaparin Sodium 40 Mg/0.4 Ml Syringe) 40 mg SUBCUT Q24H [facility] Last Admin: 02/06/22 08:37 Dose: 40 mg Flecainide Acetate (Flecainide Acetate 50 Mg Tablet) 300 mg PO ONCE ONE Stop: 02/06/22 09:52 Diltiazem HCl 125 mg/ Sodium (Chloride) 125 mls @ 0 mls/hr IVCONT .Q0M [facility]; Protocol Last Admin: 02/06/22 09:46 Dose: 15 mg/hr, 15 mls/hr Ondansetron HCl (Ondansetron Hcl 4 Mg/2 Ml Vial) 4 mg IVPUSH Q8H PRN PRN Reason: Nausea and Vomiting Pharmacy Consult (Consult Rx Perform Med Rec) 1 each MISCELLANE ONCE PRN PRN Reason: Consult order Sodium Chloride (0.9 % Sodium Chloride Flush 3 Ml Syringe) 3 ml IVFLUSH QSHIFT [facility] Last Admin: 02/06/22 08:37 Dose: 3 ml Home Medications Medication Instructions Recorded Confirmed Last Taken Type dorzolamide 22.3 mg-timolol 6.8 1 drp ophthalmic-Right TID 05/12/22 11/21/22 Unknown History mg/mL eye drops finasteride 5 mg tablet 5 mg PO DAILY 07/28/21 02/06/22 Unknown History loratadine 10 mg tablet (Claritin) 10 mg PO DAILY 07/28/21 02/06/22 Unknown History prednisolone acetate 1 % eye 1 drp ophthalmic-Left DAILY 07/28/21 02/06/22 Unknown History drops,suspension tamsulosin 0.4 mg capsule 0.4 mg PO BEDTIME 07/28/21 02/06/22 Unknown History dorzolamide 22.3 mg-timolol 6.8 1 drp ophthalmic-Left BID 02/06/22 02/06/22 Un known History mg/mL eye drops melatonin 3 mg tablet 3 mg PO BEDTIME PRN Insomnia 02/06/22 02/06/22 Unknown History tafluprost (PF) 0.0015 % eye drops 1 drp ophthalmic (eye) BEDTIME 02/06/22 02/06/22 Unknown History in a dropperette (Zioptan (PF)) Physical Exam Vital Signs: Vital Signs: Last Vital Signs Temp 97.9 F 02/06/22 05:00 Pulse 98 02/06/22 07:56 Resp 14 02/06/22 07:56 BP 112/76 02/06/22 07:56 Pulse Ox 96 02/06/22 07:56 O2 Del Method 02/06/22 07:56 BMI result Body Mass Index 25.0 Const: General: comfortable and no acute distress Orientation/consciousness: patient oriented x3 HEENT: Other: Unremarkable Head: Yes normal to inspection Neck: Neck: Yes normal visual inspection Chest: Chest palpation & inspection: normal inspection of the chest Resp: Auscultation: clear to auscultation bilaterally Cardio: Palpation: normal PMI Heart sounds: S1 normal heart sound present, S2 normal heart sound present, no gallops, no murmurs and no rubs GI: Palpation (GI): Soft to palpation Back/Spine/Pelvis: Other: unremarkable Skin: General skin exam: no rashes or lesions noted Neuro: General: patient oriented x3 Extrem: General: Yes normal to inspection Psych: Mental Status: mental status grossly normal Objective Labs and Meds Result diagrams: 02/06/22 05:30 02/06/22 05:30 Lab results: Laboratory Results - last 24 hr 02/05/22 02/05/22 02/05/22 23:45 23:45 23:45 WBC 7.3 RBC 5.30 Hgb 15.9 Hct 47.4 MCV 89.4 MCH 30.0 MCHC 33.5 RDW 12.8 Plt Count 206 MPV 10.0 Immature Gran % (Auto) 0.1 Neut % (Auto) 54.6 Lymph % (Auto) 33.5 [place] % (Auto) 8.0 Eos % (Auto) 3.2 Baso % (Auto) 0.6 Lymph # (Auto) 2.4 [place] # (Auto) 0.6 Eos # (Auto) 0.2 Baso # (Auto) 0.0 Abs Immat Gran (auto) 0.01 Absolute Neuts (auto) 4.0 Absolute Nucleated RBC 0.000 Nucleated RBC % (auto) 0.0 PT INR Sodium 140 Potassium 3.8 Chloride 104 Carbon Dioxide 24 Anion Gap 16 BUN 14 Creatinine 0.80 Estim Creat Clear Calc 102.3 Estimated GFR > 60 Random Glucose 126 H Calcium 9.5 Magnesium 1.9 Total Bilirubin 0.6 AST 16 D ALT 18 Alkaline Phosphatase 58 Troponin I High Sens 6.6 D Total Protein 6.5 Albumin 4.2 TSH COVID-19 (ANIL) COVID-19 Clin Com 02/05/22 02/06/22 02/06/22 23:45 05:03 05:30 WBC 8.1 RBC 5.39 Hgb 16.0 Hct 47.8 MCV 88.7 MCH 29.7 MCHC 33.5 RDW 12.8 Plt Count 240 MPV 10.6 Immature Gran % (Auto) 0.2 Neut % (Auto) 66.1 Lymph % (Auto) 22.9 [place] % (Auto) 8.6 Eos % (Auto) 1.8 Baso % (Auto) 0.4 Lymph # (Auto) 1.9 [place] # (Auto) 0.7 Eos # (Auto) 0.2 Baso # (Auto) 0.0 Abs Immat Gran (auto) 0.02 Absolute Neuts (auto) 5.4 Absolute Nucleated RBC 0.000 Nucleated RBC % (auto) 0.0 PT 10.9 INR 1.0 Sodium Potassium Chloride Carbon Dioxide Anion Gap BUN Creatinine Estim Creat Clear Calc Estimated GFR Random Glucose Calcium Magnesium Total Bilirubin AST ALT Alkaline Phosphatase Troponin I High Sens Total Protein Albumin TSH COVID-19 (ANIL) Negative COVID-19 Clin Com See Note 02/06/22 05:30 WBC RBC Hgb Hct MCV MCH MCHC RDW Plt Count MPV Immature Gran % (Auto) Neut % (Auto) Lymph % (Auto) [place] % (Auto) Eos % (Auto) Baso % (Auto) Lymph # (Auto) [place] # (Auto) Eos # (Auto) Baso # (Auto) Abs Immat Gran (auto) Absolute Neuts (auto) Absolute Nucleated RBC Nucleated RBC % (auto) PT INR Sodium 140 Potassium 4.1 Chloride 108 Carbon Dioxide 24 Anion Gap 12 BUN 9 Creatinine 0.70 Estim Creat Clear Calc 117.0 Estimated GFR > 60 Random Glucose 115 Calcium 9.1 Magnesium Total Bilirubin AST ALT Alkaline Phosphatase Troponin I High Sens Total Protein Albumin TSH 0.64 COVID-19 (ANIL) COVID-19 Clin Com ECG Interpretation: EKG with atrial fibrillation at a rate of 133/Min; inferior as well as lateral mild ST depression. In prior EKG from July, sinus bradycardia at 52/Min. Normal SD and corrected QT. Assessment and Plan (1) Atrial fibrillation with rapid ventricular response: Status: Acute Plan Cardiac studies reviewed. Echocardiogram with preserved LVEF at 60-65% as well as normal peak global longitudinal strain. Valves unremarkable. Holter showed underlying sinus bradycardia but no significant pauses or other abnormalities. Rare PVCs. In the stress test, he was able to reach 7.7 Mets. Normal perfusion. Labs unremarkable including troponins as well as TSH. COVID negative. Patient is not responding to IV diltiazem drip and he is still having rapid rates. Has also received dose of digoxin. His we can try giving him flecainide 300 mg p.o. does and see if he will convert to sinus. If not, may need cardioversion. Procedures Date of Service Date of Service: 02/06/22
[2022-02-06] MEDS: Flecainide Acetate 50 MG TABLET 300 MG PO (11:04)
--- NOTE | 2022-02-06 11:07 | PC.NURSE ---
Aubree Betts down to see pt
--- NOTE | 2022-02-06 11:19 | MHC.CM.PN ---
CM met with Patient at bedside. 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 Home/self care is the goal and CM has initiated and will follow for dc planning. Patient has received Covid vax x2 and his PCP is Dr. Jodie Núñez.
--- NOTE | 2022-02-06 11:54 | PC.NURSE ---
Per Dr Quinn - do not titrate diltiazem drip at this time, continue to wait for pt rhythm to convert. pt HR range currently 73-140s, remains in a.fib. diltiazem running at 15mg/hr
--- NOTE | 2022-02-06 12:32 | PC.NURSE ---
pt rhythm converted to Normal Sinus and pt HR dropped to 48. Diltiazem gtt stopped. EKG obtained. Dr. Quinn made aware. Pt hr maintaining in the mid 40s, MD aware. Continue to hold Diltiazem gtt at this time, give no further doses of digoxin. will continue to monitor.
--- NOTE | 2022-02-06 12:43 | PC.NURSE ---
EKG tigertext'd to hospitalist
--- NOTE | 2022-02-06 14:46 | PM.EVENT ---
Event Note Date of Service: 02/06/22 Event Note: 66-year-old male with past medical history of paroxysmal AFib status post cardioversion presents to the hospital in AFib with RVR Paroxysmal AFib with RVR CHADSvasc score of 0 unclear underlying etiology for him going into AFib with RVR no acute infection hemodynamically stable Digoxin and amiodarone stopped has been on Cardizem drip 15 milligrams/hour with minimal response, and switched to flecainide converted to normal sinus rhythm Started on Eliquis cardiology following Obstructive sleep apnea May use CPAP from home Low blood pressure readings No history of hypertension Follow blood pressure closely DVT prophylaxis:? Lovemerlinex Attending Dr. Quiroz Full code
--- NOTE | 2022-02-06 15:31 | PC.NURSE ---
pt reports he wants to go home. HR remaining sinus gene at 55 bpm. pt sitting upright at bedside. Aubree Campbell NP made aware.
--- NOTE | 2022-02-06 16:34 | PM.DS ---
DS: Providers Provider Date of Service: 02/06/22 Date of admission: 02/06/22 01:20 Primary care physician: Jodie Mendoza MD Consults: 02/06/22 01:22 Consult to Cardiology Routine Consulting Provider: Marcelo Helton Reason for consultation: a fib w rvr Has provider been notified: No Attending physician on discharge: Parrish Quiroz Discharging clinician: Aubree Betts DS: Diagnosis Discharge Diagnosis (1) Atrial fibrillation with rapid ventricular response: Status: Acute DS: Summary Hospital Course Hospital Course: HP as per admitting provider This is a 66-year-old male with past medical history of paroxysmal AFib, presents the hospital with complaints of tachycardia.? Patient reports that he was 1st diagnosed with AFib in July, he is status post cardioversion few months ago, he reports that around 23:00 patient woke up with palpitations.? He feels generally weak, denies any chest pain, no shortness of breath, and has not been on anticoagulation for his AFib. He denies any dizziness, no nausea or vomiting, no diarrhea constipation, no urinary symptoms and no lower extremity edema. On arrival to the ED patient hemodynamically stable with no significant abnormal vitals except for heart rate in the 130s to 150s. Labs are significant for WBC count of 7.3, hemoglobin 15.9, hematocrit 47.4, labs otherwise unremarkable, COVID-19 negative, chest x-ray negative, patient has. Patient placed on Cardizem drip and will be admitted for further management . Paroxysmal AFib with RVR CHADSvasc score of 0 unclear underlying etiology for him going into AFib with RVR, happened in July as well no acute infection hemodynamically stable Digoxin and amiodarone stopped has been on Cardizem drip 15 milligrams/hour with minimal response, and switched to flecainide converted to normal sinus rhythm Continue flecainide 50mg BID, no acnticoagulation Obstructive sleep apnea cpap Low blood pressure readings No history of hypertension stable Time Spent with Patient Time attestation: Total time spent providing and/or coordinating discharge services: Discharge coordination time: Greater than 30 minutes Quality: Safe Use of Opioids Does Pt have an Active Cancer Diagnosis on the Problem List?: No Quality: Stroke Does the patient have a stroke diagnosis?: No Physical Exam Vital Signs: Vital Signs: Last Vital Signs Temp 97.9 F 02/06/22 05:00 Pulse 55 02/06/22 15:47 Resp 16 02/06/22 15:47 BP 109/76 02/06/22 15:47 Pulse Ox 98 02/06/22 12:47 O2 Del Method 02/06/22 12:47 BMI result Body Mass Index 25.0 Appearing in no acute distress head is normocephalic atraumatic eyes pupils are PERRLA sclera is anicteric mouth throat mucous membranes are intact and moist neck is supple no lymphadenopathy, no JVD noted lung sounds are clear to auscultation heart regular rate rhythm, clear S1, S2 positive bowel sounds, abdomen is soft, nontender neuro patient is alert x3, no focal deficits DS: Data Data Completed and Pending Labs on day of discharge: Laboratory Results - last 24 hr 02/05/22 02/05/22 02/05/22 23:45 23:45 23:45 WBC 7.3 RBC 5.30 Hgb 15.9 Hct 47.4 MCV 89.4 MCH 30.0 MCHC 33.5 RDW 12.8 Plt Count 206 MPV 10.0 Immature Gran % (Auto) 0.1 Neut % (Auto) 54.6 Lymph % (Auto) 33.5 [place] % (Auto) 8.0 Eos % (Auto) 3.2 Baso % (Auto) 0.6 Lymph # (Auto) 2.4 [place] # (Auto) 0.6 Eos # (Auto) 0.2 Baso # (Auto) 0.0 Abs Immat Gran (auto) 0.01 Absolute Neuts (auto) 4.0 Absolute Nucleated RBC 0.000 Nucleated RBC % (auto) 0.0 PT INR Sodium 140 Potassium 3.8 Chloride 104 Carbon Dioxide 24 Anion Gap 16 BUN 14 Creatinine 0.80 Estim Creat Clear Calc 102.3 Estimated GFR > 60 Random Glucose 126 H Calcium 9.5 Magnesium 1.9 Total Bilirubin 0.6 AST 16 D ALT 18 Alkaline Phosphatase 58 Troponin I High Sens 6.6 D Total Protein 6.5 Albumin 4.2 TSH COVID-19 (ANIL) COVID-19 Clin Com 02/05/22 02/06/22 02/06/22 23:45 05:03 05:30 WBC 8.1 RBC 5.39 Hgb 16.0 Hct 47.8 MCV 88.7 MCH 29.7 MCHC 33.5 RDW 12.8 Plt Count 240 MPV 10.6 Immature Gran % (Auto) 0.2 Neut % (Auto) 66.1 Lymph % (Auto) 22.9 [place] % (Auto) 8.6 Eos % (Auto) 1.8 Baso % (Auto) 0.4 Lymph # (Auto) 1.9 [place] # (Auto) 0.7 Eos # (Auto) 0.2 Baso # (Auto) 0.0 Abs Immat Gran (auto) 0.02 Absolute Neuts (auto) 5.4 Absolute Nucleated RBC 0.000 Nucleated RBC % (auto) 0.0 PT 10.9 INR 1.0 Sodium Potassium Chloride Carbon Dioxide Anion Gap BUN Creatinine Estim Creat Clear Calc Estimated GFR Random Glucose Calcium Magnesium Total Bilirubin AST ALT Alkaline Phosphatase Troponin I High Sens Total Protein Albumin TSH COVID-19 (ANIL) Negative COVID-19 Clin Com See Note 02/06/22 05:30 WBC RBC Hgb Hct MCV MCH MCHC RDW Plt Count MPV Immature Gran % (Auto) Neut % (Auto) Lymph % (Auto) [place] % (Auto) Eos % (Auto) Baso % (Auto) Lymph # (Auto) [place] # (Auto) Eos # (Auto) Baso # (Auto) Abs Immat Gran (auto) Absolute Neuts (auto) Absolute Nucleated RBC Nucleated RBC % (auto) PT INR Sodium 140 Potassium 4.1 Chloride 108 Carbon Dioxide 24 Anion Gap 12 BUN 9 Creatinine 0.70 Estim Creat Clear Calc 117.0 Estimated GFR > 60 Random Glucose 115 Calcium 9.1 Magnesium Total Bilirubin AST ALT Alkaline Phosphatase Troponin I High Sens Total Protein Albumin TSH 0.64 COVID-19 (ANIL) COVID-19 Clin Com Discharge Plan Discharge Anticipated Discharge Date/Time: 02/06/22 16:30 Patient Disposition: Home, Self-Care Discharge Diagnosis: Atrial fibrillation with rapid ventricular response Referrals: Jodie Mendoza MD [Primary Care Provider] - 1 Week Marcelo Helton MD [Physician] - 1 Week Discharge Medications: New flecainide 50 mg tablet 50 mg PO Q12H Qty: 60 0RF Continued dorzolamide-timolol 22.3-6.8 mg/mL drops 1 drp ophthalmic-Left BID Zioptan (PF) 0.0015 % dropperette 1 drp ophthalmic (eye) BEDTIME melatonin 3 mg Tablet 3 mg PO BEDTIME PRN (Reason: Insomnia) dorzolamide-timolol 22.3-6.8 mg/mL drops 1 drp ophthalmic-Right TID tamsulosin 0.4 mg capsule 0.4 mg PO BEDTIME finasteride 5 mg tablet 5 mg PO DAILY prednisolone acetate 1 % drops,suspension 1 drp ophthalmic-Left DAILY loratadine [Claritin] 10 mg tablet 10 mg PO DAILY Discharge Orders: Discharge Order (Routine); Ordered 02/06/22 Ordered By: Aubree Betts Diet: Advance to usual diet Activity on Discharge: As tolerated Stand Alone Forms: Patient Portal Discharge page Care Plan Goals: No further episodes of atrial fibrillation Health Concerns: Atrial fibrillation with rapid ventricular response Plan of Treatment: Follow-up with cardiology for management of new medications Take all medications as prescribed You have been started on flecainide which is an antiarrhythmic medication Assessment: See discharge summary
== END 2022-02-06 16:51 | disposition home or self-care (01) | DRG 201 ==
LOC: HO.ED 02-06 00:08 → HO.EDOVER 02-06 02:01
PROVIDERS: Admitting Provider Internal Medicine; Emergency Provider Internal Medicine; PCP Family Medicine; Visit Provider Nurse Practitioner Acute Care
DX: I48.0 Paroxysmal atrial fibrillation (principal); G47.33 Obstructive sleep apnea (adult) (pediatric); Z20.822 Contact with and (suspected) exposure to COVID-19; Z88.0 Allergy status to penicillin; Z87.891 Personal history of nicotine dependence; Z79.899 Other long term (current) drug therapy
CPT/HCPCS: 36415; 80048; 80053; 83735; 84443; 84484; 85025; 85610; 87635; 93005; 99285; J1160; J1650

== ENCOUNTER → 2022-02-08 08:12 | Outpatient (BNVA) | payer BC, SELFPAY | PROVIDERS: PCP Family Medicine; Visit Provider Internal Medicine | DX: I48.91 Unspecified atrial fibrillation (principal); R00.1 Bradycardia, unspecified | CPT/HCPCS: 93005 ==

== ENCOUNTER → 2022-03-01 07:41 | Outpatient (REF) | payer BC, SELFPAY ==
--- NOTE | 2022-03-01 07:45 | CA_ITS ---
Acquisition Time: 2022-03-01 07:56:52 Total Exercise Time: 00:07:19 Test Indications: Abnormal ECG AFIB Medications: FLECAINIDE TAMSULOSIN FINASTERIDE LORATADINE Protocol: JEWEL Max HR: 137 BPM 87% of Pred: 156 BPM Max BP: 168/088 mmHG Max Work Load: 9.0 METS Exercise stress test with exercise 7 min 19 sec of Jewel protocol, achieving 88% MPHR, 9 METs, without anginal symptoms, with isolated PACs, with normotensive and normal chronotropic response to exercise, without EKG changes meeting criteria for ischemia. Test reviewed with Dr Quinn. Referred By: Primo Quinn Overread By: RADHA SANDS
--- NOTE | 2022-03-01 07:45 | HM_ITS ---
* Total monitoring time 3 days. * Underlying rhythm is sinus bradycardia. Average ventricular rate 52/Min. Range 35 to 100/Min. * About 82% the time, rate less than 60/Min. * No significant pauses or AV blocks. * Very short run of accelerated idioventricular rhythm during sleep hours. * No patient diary. MTDD
== END ==
LOC: HO.CARD 07:41
PROVIDERS: PCP Family Medicine; Visit Provider Internal Medicine
DX: I48.91 Unspecified atrial fibrillation (principal)
CPT/HCPCS: 93017; 93242

== ENCOUNTER → 2022-04-11 13:11 | Outpatient (BNVA) | payer BC, SELFPAY | PROVIDERS: PCP Family Medicine; Referring Provider Family Medicine; Visit Provider Internal Medicine | DX: I48.0 Paroxysmal atrial fibrillation (principal); G47.33 Obstructive sleep apnea (adult) (pediatric) | CPT/HCPCS: 93005 ==

== ENCOUNTER 2022-10-04 14:32 | Outpatient (AMB) | payer BC, SELFPAY ==
[2022-10-04 14:41] VITALS: BP 138/80; PULSE 63; BMI 27.9
--- NOTE | 2022-10-04 14:41 | MHC.OFFVIS ---
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 Accompanied by: Self / Same As Patient Allergies Penicillins Allergy (Unknown, Verified 10/04/22 14:43) unknown Medication List - Last Reconciled 10/04/22 by Primo Quinn MD apixaban (Eliquis) 5 mg PO BID dorzolamide-timolol 22.3-6.8 mg/mL 1 drp ophthalmic-Left BID finasteride 5 mg PO DAILY loratadine (Claritin) 10 mg PO DAILY melatonin 3 mg PO BEDTIME PRN prednisolone acetate 1% 1 drp ophthalmic-Left DAILY tafluprost (PF) (Zioptan (PF)) 1 drp ophthalmic (eye) BEDTIME tamsulosin 0.4 mg PO BEDTIME HPI HPI Comments History of Present Illness Details Don returns for follow-up regarding atrial fibrillation. To recall, in July 2021, he presented to the emergency room with palpitations and found to be in atrial fibrillation with rapid rate. It seems that he also had some low blood pressure and that led to cardioversion by the ER physician. He also had significant resting bradycardia and hence not put on any medications. Then in January 2022, he had 1 further episode of atrial fibrillation rapid rate. At that time, he was once again admitted. Had flecainide and converted to sinus rhythm. He remains on a small dose of flecainide. Again due to resting bradycardia, not able to give any further medications. Most recently, he was seen by EP at [facility] and underwent ablation for atrial fibrillation. Doing well since that time. No recurrences. Feels fine otherwise. [facility] Medical History Afib Enlarged prostate Sleep apnea Surgical History Hx of eye surgery Family History Father Pacemaker Mother No problems noted. Social History Alcohol intake: current Alcohol intake frequency: a few times a month Patient Tobacco Use Status: Former Tobacco user Quit Date: 1979 Smoked: 5 +/- service: No Current occupational status: employed Review of Systems Const Denies weakness ENT Denies dizziness Card Denies chest pain, Denies chest pain with activity, Denies syncope, Denies rapid heart rate, Denies pedal edema, Denies edema, Denies leg edema, Denies lightheadedness, Denies palpitations, Denies dyspnea, Denies dyspnea on exertion and Denies orthopnea Resp Denies cough, Denies dyspnea and Denies dyspnea on exertion GI Denies hematochezia and Denies change in stool character Musc Denies abnormal gait, Denies muscle cramps, Denies muscle weakness, Denies numbness, Denies radiating pain into limb and Denies tingling Neuro Denies abnormal gait, Denies dizziness, Denies syncope, Denies numbness, Denies tingling and Denies weakness Endo Denies palpitations Physical Exam Vital Signs: Last Vital Signs Pulse 63 10/04/22 14:41 BP 138/80 10/04/22 14:41 BMI result Body Mass Index 27.9 Const General: comfortable and no acute distress Orientation/consciousness: patient oriented x3 HEENT Other: Unremarkable Head: Yes normal to inspection Neck Neck: Yes normal visual inspection Chest Chest palpation & inspection: normal inspection of the chest Resp Auscultation: clear to auscultation bilaterally Cardio Palpation: normal PMI Heart sounds: S1 normal heart sound present, S2 normal heart sound present, no gallops, no murmurs and no rubs GI Palpation (GI): Soft to palpation Back/Spine/Pelvis Other: unremarkable Skin General skin exam: no rashes or lesions noted Neuro General: patient oriented x3 Extrem General: Yes normal to inspection Psych Mental Status: mental status grossly normal Assessment & Plan Assessment & Plan (1) PAF (paroxysmal atrial fibrillation): Code(s): I48.0 - Paroxysmal atrial fibrillation Plan: Status post atrial fibrillation ablation and doing well. He is not on any rate control drugs at baseline due to significant bradycardia. Has taken flecainide but not anymore. With regard to anticoagulation, possibly use for 3 months after ablation then stop. He really does not have any major thromboembolic risk factors and his atrial fibrillation episodes are far and few. And nothing post ablation. Cardiac testing- Echocardiogram with preserved LVEF at 60-65% but otherwise unremarkable. Myocardial perfusion imaging study was normal. (2) LI (obstructive sleep apnea): Code(s): G47.33 - Obstructive sleep apnea (adult) (pediatric) Plan: Continue regular CPAP. Importance of this discussed. Orders: Orders ECG 3 day holter monitor 6 Months I48.0 - Paroxysmal atrial fibrillation Coding Level of Care Code Est Pt Level 3 (26070) Diagnoses PAF (paroxysmal atrial fibrillation) I48.0 LI (obstructive sleep apnea) G47.33
== END 2022-10-04 14:59 | disposition home or self-care (01) ==
PROVIDERS: PCP Family Medicine; Referring Provider Family Medicine; Visit Provider Internal Medicine
DX: I48.0 Paroxysmal atrial fibrillation (principal); G47.33 Obstructive sleep apnea (adult) (pediatric)
CPT/HCPCS: 99213

== ENCOUNTER → 2022-10-04 14:32 | Outpatient (BNVA) | payer BC, SELFPAY | PROVIDERS: PCP Family Medicine; Referring Provider Family Medicine; Visit Provider Internal Medicine ==

== ENCOUNTER → 2023-03-26 07:42 | Outpatient (REF) | payer BC, SELFPAY ==
--- NOTE | 2023-03-26 07:46 | HM_ITS ---
Conclusion: 1. Patient was monitored for total period of 3 days 2. Baseline was normal sinus rhythm with average heart rate of 53 beats per minute 3. No significant pauses noted but frequent sinus bradycardia noted with 81% time heart rate below 60 beats per minute 4. Occasional PVCs noted 5. No patient reported events MTDD
== END ==
LOC: HO.CARD 07:42
PROVIDERS: PCP Family Medicine; Visit Provider Internal Medicine
DX: I48.0 Paroxysmal atrial fibrillation (principal)
CPT/HCPCS: 93242

== ENCOUNTER → 2023-03-26 07:46 | Outpatient (BNV) | payer BC, SELFPAY | PROVIDERS: PCP Family Medicine; Visit Provider Internal Medicine Cardiovascular Disease | DX: R00.1 Bradycardia, unspecified (principal) | CPT/HCPCS: 93244 ==

== ENCOUNTER 2023-04-10 10:04 | Outpatient (AMB) | payer BC, SELFPAY ==
--- NOTE | 2023-04-10 10:15 | A.OFFVIS_ITS ---
Intake Vital Signs 04/10/23 10:16 Height 6 ft Weight 209 lb 7.026 oz BMI 28.4 BP 118/68 Blood Pressure Location Rt brachial Position Sitting Pulse 58 Intake Visit Reasons: 6 month follow up Intake Note: 6 month follow up Tableman Required: No Accompanied by: Self / Same As Patient Allergies Penicillins Allergy (Unknown, Verified 04/10/23 10:17) unknown Medication List - Last Reconciled 04/10/23 by Primo Quinn MD dorzolamide-timolol 22.3-6.8 mg/mL 1 drp ophthalmic-Left BID finasteride 5 mg PO DAILY loratadine (Claritin) 10 mg PO DAILY melatonin 3 mg PO BEDTIME PRN prednisolone acetate 1% 1 drp ophthalmic-Left DAILY tafluprost (PF) 0.0015% (Zioptan (PF)) 1 drp ophthalmic (eye) BEDTIME tamsulosin 0.4 mg PO BEDTIME HPI HPI Comments History of Present Illness Details Don returns for follow-up regarding atrial fibrillation. To recall, in July 2021, he presented to the emergency room with palpitations and found to be in atrial fibrillation with rapid rate. It seems that he also had some low blood pressure and that led to cardioversion by the ER physician. He also had significant resting bradycardia and hence not put on any medications. Then in January 2022, he had 1 further episode of atrial fibrillation rapid rate. At that time, he was once again admitted. Had flecainide and converted to sinus rhythm. He was then put on a small dose of flecainide. Subsequently, he was seen by EP at [facility] underwent atrial fibrillation ablation. After that, no new issues. He states he is feeling good. [facility] Medical History Afib Enlarged prostate Sleep apnea Surgical History Hx of eye surgery Family History Father Pacemaker Mother No problems noted. Social History Alcohol intake: current Alcohol intake frequency: a few times a month Comment: d/c from overflow Patient Tobacco Use Status: Former Tobacco user Quit Date: 1979 Years Smoked: 5 +/- service: No Current occupational status: employed Review of Systems Const Denies weakness ENT Denies dizziness Card Denies chest pain, Denies chest pain with activity, Denies syncope, Denies rapid heart rate, Denies pedal edema, Denies edema, Denies leg edema, Denies lightheadedness, Denies palpitations, Denies dyspnea, Denies dyspnea on exertion and Denies orthopnea Resp Denies cough, Denies dyspnea and Denies dyspnea on exertion GI Denies hematochezia and Denies change in stool character Musc Denies abnormal gait, Denies muscle cramps, Denies muscle weakness, Denies numbness, Denies radiating pain into limb and Denies tingling Neuro Denies abnormal gait, Denies dizziness, Denies syncope, Denies numbness, Denies tingling and Denies weakness Endo Denies palpitations Physical Exam Vital Signs: Last Vital Signs Pulse 58 04/10/23 10:16 BP 118/68 04/10/23 10:16 BMI result Body Mass Index 28.4 Const General: comfortable and no acute distress Orientation/consciousness: patient oriented x3 HEENT Other: Unremarkable Head: Yes normal to inspection Neck Neck: Yes normal visual inspection Chest Chest palpation & inspection: normal inspection of the chest Resp Auscultation: clear to auscultation bilaterally Cardio Palpation: normal PMI Heart sounds: S1 normal heart sound present, S2 normal heart sound present, no gallops, no murmurs and no rubs GI Palpation (GI): Soft to palpation Back/Spine/Pelvis Other: unremarkable Skin General skin exam: no rashes or lesions noted Neuro General: patient oriented x3 Extrem General: Yes normal to inspection Psych Mental Status: mental status grossly normal Assessment & Plan Assessment & Plan (1) PAF (paroxysmal atrial fibrillation): Code(s): I48.0 - Paroxysmal atrial fibrillation Plan: Status post atrial fibrillation ablation and doing well. He is not on any rate control drugs at baseline due to significant bradycardia. Has taken flecainide but not anymore. Due to rare episodes and low thromboembolic risk, not on anticoagulation. Over the last couple of years, he has gained almost 25 lb in weight. Strongly advised to lose weight. That will diminish the likelihood of future atrial fibrillation. Cardiac testing- Echocardiogram with preserved LVEF at 60-65% but otherwise unremarkable. Myocardial perfusion imaging study was normal. Recent Holter-frequent sinus bradycardia; no atrial fibrillation episodes. (2) LI (obstructive sleep apnea): Code(s): G47.33 - Obstructive sleep apnea (adult) (pediatric) Plan: Continue regular CPAP. Importance of this discussed. Coding Level of Care Code Est Pt Level 3 (46874) Diagnoses PAF (paroxysmal atrial fibrillation) I48.0 LI (obstructive sleep apnea) G47.33
[2023-04-10 10:16] VITALS: BP 118/68; PULSE 58; BMI 28.4
== END 2023-04-10 10:28 | disposition home or self-care (01) ==
PROVIDERS: PCP Family Medicine; Visit Provider Internal Medicine
DX: I48.0 Paroxysmal atrial fibrillation (principal); G47.33 Obstructive sleep apnea (adult) (pediatric)
CPT/HCPCS: 99213

== ENCOUNTER → 2023-04-10 10:04 | Outpatient (BNVA) | payer BC, SELFPAY | PROVIDERS: PCP Family Medicine; Visit Provider Internal Medicine ==

== ENCOUNTER 2024-04-10 08:40 | Outpatient (AMB) | payer BC, SELFPAY ==
[2024-04-10 09:03] VITALS: BP 148/90; PULSE 58; BMI 28.8
--- NOTE | 2024-04-10 09:03 | A.OFFVIS_ITS ---
Vital Signs 04/10/24 09:03 Height 6 ft Weight 212 lb 8.41 oz BMI 28.8 BP 148/90 H Blood Pressure Location Lt brachial Position Sitting Pulse 58 Intake Visit Reasons: 1 yr f/u Life Manager Required: No Accompanied by: Self / Same As Patient Allergies Penicillins Allergy (Unknown, Verified 04/10/23 10:17) unknown Medication List - Last Reconciled 04/10/24 by Primo Quinn MD dorzolamide-timolol 22.3-6.8 mg/mL 1 drp ophthalmic-Left BID finasteride 5 mg PO DAILY loratadine (Claritin) 10 mg PO DAILY melatonin 3 mg PO BEDTIME PRN prednisolone acetate 1% 1 drp ophthalmic-Left DAILY tafluprost (PF) 0.0015% (Zioptan (PF)) 1 drp ophthalmic (eye) BEDTIME tamsulosin 0.4 mg PO BEDTIME HPI Comments Details: Kojo returns for follow-up regarding atrial fibrillation. To recall, in July 2021, he presented to the ER with palpitations and found to be in atrial fibrillation with rapid rate. Had cardioversion by the ER physician. He also had significant resting bradycardia and hence not put on any medications. Then in January 2022, he had 1 further episode of atrial fibrillation ith rapid rate. At that time, he had flecainide and converted to sinus rhythm. Subsequently, underwent atrial fibrillation ablation. Overall, he states he feels good. No specific cardiac concerns. No recurrent palpitations. [facility] Medical History Afib Enlarged prostate Sleep apnea Surgical History Hx of eye surgery Family History Father Pacemaker Mother No problems noted. Social History Alcohol intake: current Alcohol intake frequency: a few times a month Comment: d/c from overflow Patient Tobacco Use Status: Former Tobacco user Years Smoked: 5 +/- service: No Current occupational status: employed Review of Systems Const Denies chills, Denies fatigue, Denies fever(s), Denies weight gain and Denies weight loss ENT Denies dizziness Card Denies chest pain, Denies leg edema, Denies lightheadedness, Denies palpitations, Denies dyspnea on exertion, Denies orthopnea and Denies other Resp Denies cough and Denies dyspnea on exertion GI Denies hematochezia and Denies change in stool character Musc Denies abnormal gait, Denies muscle weakness, Denies numbness, Denies radiating pain into limb and Denies tingling Neuro Denies abnormal gait, Denies dizziness, Denies numbness and Denies tingling Endo Denies fatigue and Denies palpitations Physical Exam Vital Signs: Last Vital Signs Pulse 58 04/10/24 09:03 BP 148/90 H 04/10/24 09:03 BMI result Body Mass Index 28.8 Const General: comfortable and no acute distress Orientation/consciousness: patient oriented x3 HEENT Other: Unremarkable Head: Yes normal to inspection Neck Neck: Yes normal visual inspection Chest Chest palpation & inspection: normal inspection of the chest Resp Auscultation: clear to auscultation bilaterally Cardio Palpation: normal PMI Heart sounds: S1 normal heart sound present, S2 normal heart sound present, no gallops, no murmurs and no rubs GI Palpation (GI): Soft to palpation Back/Spine/Pelvis Other: unremarkable Skin General skin exam: no rashes or lesions noted Neuro General: patient oriented x3 Extrem General: Yes normal to inspection Psych Mental Status: mental status grossly normal Office Procedures EKG Details: EKG with sinus bradycardia, 58/Min; supraventricular ectopy; [place] [id number], Complete Assessment & Plan Assessment & Plan (1) PAF (paroxysmal atrial fibrillation): Code(s): I48.0 - Paroxysmal atrial fibrillation Category: Medical Plan: Status post atrial fibrillation ablation and doing well. He is not on any rate control drugs at baseline due to significant bradycardia. Low thromboembolic risk, not on anticoagulation. Over the last couple of years, he has gained almost 25 lb in weight. Strongly advised to lose weight. That will diminish the likelihood of future atrial fibrillation. Cardiac testing- Echocardiogram with preserved LVEF at 60-65% but otherwise unremarkable. Myocardial perfusion imaging study was normal. Holter-frequent sinus bradycardia; no atrial fibrillation episodes. (2) LI (obstructive sleep apnea): Code(s): G47.33 - Obstructive sleep apnea (adult) (pediatric) Category: Medical Plan: CPAP. (3) Elevated blood pressure reading without diagnosis of hypertension: Code(s): R03.0 - Elevated blood-pressure reading, without diagnosis of hypertension Category: Medical Plan: Could be related to weight gain. Advised him to do home readings. Start with lifestyle measures and if blood pressure still runs high, then may need METS. Coding Level of Care Code Est Pt Level 3 (07088) Diagnoses PAF (paroxysmal atrial fibrillation) I48.0 LI (obstructive sleep apnea) G47.33 Elevated blood pressure reading without diagnosis of hypertension R03.0 CPT Codes EKG - CPT: [id number], Complete ([id number])
== END 2024-04-10 09:19 | disposition home or self-care (01) ==
PROVIDERS: PCP Family Medicine; Visit Provider Internal Medicine
DX: I48.0 Paroxysmal atrial fibrillation (principal); G47.33 Obstructive sleep apnea (adult) (pediatric); R03.0 Elevated blood-pressure reading, without diagnosis of hypertension
CPT/HCPCS: 93010; 99213

== ENCOUNTER → 2024-04-10 08:40 | Outpatient (BNVA) | payer BC, SELFPAY | PROVIDERS: PCP Family Medicine; Visit Provider Internal Medicine | DX: I48.0 Paroxysmal atrial fibrillation (principal); G47.33 Obstructive sleep apnea (adult) (pediatric); R03.0 Elevated blood-pressure reading, without diagnosis of hypertension | CPT/HCPCS: 93005 ==

== ENCOUNTER 2024-04-27 19:44 | Emergency (ER) | payer BC, SELFPAY ==
--- NOTE | ~2024-04-27 | XR_ITS ---
CLINICAL HISTORY: SOB, cough 2 view chest x-ray Comparison: Chest x-ray from 07/17/2021 Findings: New mild left retrocardiac opacities concerning for mild pneumonitis. No pneumothorax or pleural effusion. Imaged mediastinum appears unchanged. Degenerative changes include the imaged shoulders and imaged spine. Multilevel Schmorl's nodes of the imaged thoracic vertebrae. IMPRESSION: Mild/minimal atelectasis and/or pneumonitis. This document has been electronically signed by: Michael Watson MD on 04/27/2024 21:42:08
[2024-04-27 19:50] VITALS: BP 141/84; PULSE 67; RESP 20; TEMP 36.4; O2SAT 100; BMI 29.9
--- NOTE | 2024-04-27 19:51 | ED.SOB ---
HPI - SOB/Dyspnea General Chief Complaint: Dyspnea Stated Complaint: SOB with cough Time Seen by Provider: 04/27/24 22:15 Source: patient Limitations: no limitations History of Present Illness ED Provider: Sophie Novoa PA-C HPI Narrative: 68-year-old male with a history of paroxysmal AFib, sleep apnea, presents with congestion x1 month. Patient states he initially developed congestion in his upper airways with postnasal drip, constantly having to clear his throat. Patient states he has been using Mucinex daily. Today, he felt as if he was developing chest congestion. Patient states he feels as if he can not take complete breath. Patient does not smoke currently, he has in the past. He does not have a diagnosis of COPD. Denies fever, sick contacts with viral symptoms. Denies chest pain, diaphoresis. Related Data Home Medications ?Medication ?Instructions ?Recorded ?Confirmed finasteride 5 mg tablet 5 mg PO DAILY 07/28/21 04/10/24 loratadine 10 mg tablet (Claritin) 10 mg PO DAILY 07/28/21 04/10/24 prednisolone acetate 1 % eye 1 drp ophthalmic-Left DAILY 07/28/21 04/10/24 drops,suspension tamsulosin 0.4 mg capsule 0.4 mg PO BEDTIME 07/28/21 04/10/24 dorzolamide 22.3 mg-timolol 6.8 1 drp ophthalmic-Left BID 02/06/22 04/10/24 mg/mL eye drops melatonin 3 mg tablet 3 mg PO BEDTIME PRN Insomnia 02/06/22 04/10/24 tafluprost (PF) 0.0015 % eye drops 1 drp ophthalmic (eye) BEDTIME 02/06/22 04/10/24 in a dropperette (Zioptan (PF)) Allergies Allergy/AdvReac Type Severity Reaction Status Date / Time Penicillins Allergy Unknown unknown Verified 04/27/24 19:55 Review of Systems Review of Systems: Yes all other systems are reviewed and are negative Constitutional: Constitutional: Denies fatigue and Denies fever(s) ENT: Reports nasal congestion and Reports post nasal drip Cardiovascular: Cardiovascular: Denies chest pain and Reports dyspnea Respiratory: Respiratory: Reports chest congestion and Reports dyspnea Endocrine: Endocrine: Denies fatigue PMFSH Past Medical History Attestation statement: The following information was validated with the patient. Medical History Afib Enlarged prostate Sleep apnea Surgical History Hx of eye surgery Family History Family History Father Pacemaker Mother No problems noted. Social History Social History Unable to assess alcohol history related to: Unknown Alcohol intake: current Alcohol intake frequency: a few times a month Comment: d/c from overflow Patient Tobacco Use Status: Former Tobacco user Years Smoked: 5 +/- Use of substances other than those prescribed or required for medical reasons: Unknown Advance Directives: No Advance Directives Information Provided: No service: No Current occupational status: employed Physical Exam Vital Signs: Vital Signs: Last Vital Signs Temp 97.2 F 04/27/24 23:50 Pulse 98 04/27/24 23:50 Resp 18 04/27/24 23:50 BP 106/65 04/27/24 23:50 Pulse Ox 98 04/27/24 23:50 O2 Del Method Room Air 04/27/24 23:50 BMI result Body Mass Index 29.9 Const: Other: Alert well-appearing Orientation/consciousness: patient oriented x3 Resp: Other: Lungs clear to auscultation no tachypnea Cardio: Other: Normal peripheral perfusion Skin: Other: Warm dry no rash Neuro: General: patient oriented x3, no focal motor deficits and CN's II-XI intact bilaterally Psych: Other: Cooperative Course Course Course Narrative: This is an RME performed by Gilbert Pennington CNP: Additional HPI, ROS, PE not included below will be deferred to primary provider. Patient is a 68-year-old male past medical history of paroxysmal atrial fibrillation s/p ablation not on anticoagulants, LI, presents emergency department for evaluation he states ?I have had a for the past month that was sinus related and kind of going into my chest somewhat . has been using Mucinex intermittently. He states that tonight he was having orthopnea, which prompted his concern but states shortness of breath was alleviated upon sitting up. Plan: Serum labs, viral serologies, EKG, CXR Medical Decision Making Medical Decision Making [facility] Narrative: 68-year-old male with a history of paroxysmal AFib, sleep apnea, presents with congestion x1 month. Patient states he initially developed congestion in his upper airways with postnasal drip, constantly having to clear his throat. Patient states he has been using Mucinex daily. Today, he felt as if he was developing chest congestion. Patient states he feels as if he can not take complete breath. Patient does not smoke currently, he has in the past. He does not have a diagnosis of COPD. Denies fever, sick contacts with viral symptoms. Denies chest pain, diaphoresis. Problem: Age History: Per patient I have considered the following differential diagnoses: Viral syndrome, congestion, pneumonia, bronchitis, ACS, PE, new heart failure Plan: Patient has symptoms are very nonspecific. They are also highly subjective. The patient was hemodynamically stable, with an unremarkable exam. Doubtful to be viral syndrome given he has had symptoms for a month. Thought about ACS, however the patient has no risk factors for coronary artery disease other than age and being male, screening labs including cardiac enzymes EKG and chest x-ray were obtained. Thought about new heart failure, however the patient was not volume overloaded on exam, he is not hypoxic, he is not technically short of breath, he is not overtly hypertensive. Thought about PE, however he does not have pleuritic chest pain, there are no objective signs symptoms for DVT on exam, he is not hypoxic he is not tachycardic, I am deferring a dimer. I have independently reviewed the following tests: Labs: No leukocytosis, not anemic, no electrolyte abnormality 1st troponin 5.3, delta troponin 4.9, viral panel negative EKG: Normal sinus rhythm, rate of 62, no ischemic changes no ectopy Chest x-ray:MPRESSION: Mild/minimal atelectasis and/or pneumonitis. This document has been electronically signed by: Michael Watson MD on 04/27/2024 21:42:08 Lab Data 04/27/24 20:07 04/27/24 20:07 Labs: Lab Results 04/27/24 04/27/24 04/27/24 Range/Units 20:06 20:07 22:40 WBC 7.8 (4.8-10.8) X10*3/uL RBC 4.81 (4.60-5.80) X10*6/uL Hgb 14.7 (14.0-18.0) g/dl Hct 43.4 (42.0-52.0) % MCV 90.2 (80.0-98.0) fL MCH 30.6 (27.0-33.0) pg MCHC 33.9 (31.0-36.0) g/dl RDW 12.6 (11.0-16.0) % Plt Count 203 (160-400) X10*3/uL MPV 9.7 (9.4-12.4) fL Immature Gran % (Auto) 0.4 (0.0-0.4) % Neut % (Auto) 55.8 (45-73) % Lymph % (Auto) 29.9 (20-40) % [place] % (Auto) 8.8 (2-11) % Eos % (Auto) 4.5 H (0-4) % Baso % (Auto) 0.6 (0-2) % Lymph # (Auto) 2.3 (1.2-4.9) X10*3/uL [place] # (Auto) 0.7 (0.1-1.2) X10*3/uL Eos # (Auto) 0.4 (0.0-0.4) X10*3/uL Baso # (Auto) 0.1 (0.0-0.2) X10*3/uL Abs Immat Gran (auto) 0.03 (0.00-0.03) X10*3/uL Absolute Neuts (auto) 4.4 (2.0-8.3) x10*3/uL Absolute Nucleated RBC 0.000 (0.0-0.012) X10*3/uL Nucleated RBC % (auto) 0.0 (0.0-0.2) /100WBC PT 11.0 (10.9-12.4) SEC INR 0.9 (0.9-1.1) Sodium 138 (135-145) mmol/L Potassium 3.5 (3.3-5.1) mmol/L Chloride 104 (96-108) mmol/L Carbon Dioxide 25 (22-29) mmol/L Anion Gap 13 (12-20) BUN 15 (9-16) mg/dL Creatinine 0.77 (0.5-1.4) mg/dL Estim Creat Clear Calc 112.2 Estimated GFR > 60 Random Glucose 110 (60-115) mg/dL Calcium 9.6 (8.4-10.2) mg/dL Total Bilirubin 0.4 (0.0-1.0) mg/dL AST 24 (5-37) U/L ALT 27 (0-40) U/L Alkaline Phosphatase 63 (39-117) U/L Troponin I High Sens 5.3 4.9 (<3.5-35.0) ng/L B-Natriuretic Peptide 33 (<100) pg/mL Total Protein 6.9 (6.5-8.0) g/dL Albumin 4.2 (3.5-5.0) g/dL Influenza Type A (PCR) NEGATIVE (Negative) Influenza Type B (PCR) NEGATIVE (Negative) RSV RNA Qual (PCR) NEGATIVE (Negative) SARS-CoV-2 RNA (RT-PCR) NEGATIVE (Negative) Discharge Plan Discharge Clinical Impression: Shortness of breath Patient Disposition: Home, Self-Care Instructions: Shortness of Breath (ED) Additional Instructions: All of your screening labs including 2 cardiac enzymes were normal. There was no concerning changes on your EKG in the chest x-ray is clear. You were screened for influenza a and B, RSV and COVID, the viral panel was negative. You should follow up with your primary care provider to discuss the need for pulmonary function testing. Given your symptoms acutely worsened, you may be developing 1 of these viruses. You may develop a fever. Prescriptions: No Action dorzolamide-timolol 22.3-6.8 mg/mL drops 1 drp ophthalmic-Left BID Zioptan (PF) 0.0015 % dropperette 1 drp ophthalmic (eye) BEDTIME melatonin 3 mg Tablet 3 mg PO BEDTIME PRN (Reason: Insomnia) tamsulosin 0.4 mg capsule 0.4 mg PO BEDTIME finasteride 5 mg tablet 5 mg PO DAILY prednisolone acetate 1 % drops,suspension 1 drp ophthalmic-Left DAILY loratadine [Claritin] 10 mg tablet 10 mg PO DAILY Stand Alone Forms: Work/School Release Interventions: ED Discharge Assessment Last Done: 04/27/24 23:50 Discharge Date/Time: 04/27/24 23:51 Print Language: [place]
--- NOTE | 2024-04-27 19:54 | ECG_ITS ---
Test Reason : SOB Blood Pressure : */* mmHG Vent. Rate : 62 BPM Atrial Rate : 62 BPM P-R Int : 182 ms QRS Dur : 98 ms QT Int : 390 ms P-R-T Axes : 59 33 38 degrees QTcB Int : 395 ms Normal sinus rhythm Normal ECG When compared with ECG of 06-Feb-2022 12:36, No significant change was found Referred By: Ramila Pennington Electronically Signed By: GENIA BETH MD
[2024-04-27 20:12] LABS: MANUAL DIFF FLAG NO
[2024-04-27 20:13] LABS: Basophils Absolute Auto 0.1 X10*3/uL (0.0-0.2); Basophils Percent Auto 0.6 % (0-2); Eosinophils Absolute Auto 0.4 X10*3/uL (0.0-0.4); Eosinophils Percent Auto 4.5 % (0-4); Hematocrit 43.4 % (42.0-52.0); Hemoglobin 14.7 g/dl (14.0-18.0); Imm Gran Abs Auto 0.03 X10*3/uL (0.00-0.03); Imm Gran Pct Auto 0.4 % (0.0-0.4); Lymphocytes Absolute Auto 2.3 X10*3/uL (1.2-4.9); Lymphocytes Percent Auto 29.9 % (20-40); Mean Corpuscular HGB Conc 33.9 g/dl (31.0-36.0); Mean Corpuscular Hemoglobin 30.6 pg (27.0-33.0); Mean Corpuscular Volume 90.2 fL (80.0-98.0); Mean Platelet Volume 9.7 fL (9.4-12.4); Monocytes Absolute Auto 0.7 X10*3/uL (0.1-1.2); Monocytes Percent Auto 8.8 % (2-11); Neutrophils Absolute Auto 4.4 x10*3/uL (2.0-8.3); Neutrophils Percent Auto 55.8 % (45-73); Platelet Count 203 X10*3/uL (160-400); Red Blood Count 4.81 X10*6/uL (4.60-5.80); Red Cell Distribution Width 12.6 % (11.0-16.0); White Blood Count 7.8 X10*3/uL (4.8-10.8)
[2024-04-27 20:18] LABS: INTERNATIONAL NORM RATIO 0.9 (0.9-1.1)
[2024-04-27 20:30] LABS: Alanine Aminotransferase 27 U/L (0-40); Albumin Level 4.2 g/dL (3.5-5.0); Alkaline Phosphatase 63 U/L (39-117); Anion Gap 13 (12-20); Aspartate Amino Transferase 24 U/L (5-37); Bilirubin Total 0.4 mg/dL (0.0-1.0); Blood Urea Nitrogen 15 mg/dL (9-16); Calcium 9.6 mg/dL (8.4-10.2); Carbon Dioxide 25 mmol/L (22-29); Chloride 104 mmol/L (96-108); Creatinine Clr Calc Pharmacy 112.2; Estimated Glomerular Filt Rate > 60; Glucose Random 110 mg/dL (60-115); Potassium 3.5 mmol/L (3.3-5.1); Sodium 138 mmol/L (135-145); Total Protein 6.9 g/dL (6.5-8.0)
[2024-04-27 20:36] LABS: B Type Natriuretic Peptide 33 pg/mL (<100)
[2024-04-27 20:37] LABS: Troponin-I High Sensitivity 5.3 ng/L (<3.5-35.0)
[2024-04-27 20:49] LABS: Influenza A PCR NEGATIVE (Negative); Influenza B PCR NEGATIVE (Negative); Resp Syncy Virus RNA Qual PCR NEGATIVE (Negative); SARS COV2 PCR INHOUSE NEGATIVE (Negative)
[2024-04-27 23:12] LABS: Troponin-I High Sensitivity 4.9 ng/L (<3.5-35.0)
[2024-04-27 23:49] VITALS: BP 106/65; PULSE 98; RESP 18; TEMP 36.2; O2SAT 98
[2024-04-27 23:50] VITALS: BP 106/65; PULSE 98; RESP 18; TEMP 36.2; O2SAT 98
== END 2024-04-27 23:51 | disposition home or self-care (01) ==
PROVIDERS: Nurse Practitioner Family; Physician Assistant Medical; Emergency Provider Emergency Medicine; PCP Family Medicine
DX: R06.02 Shortness of breath (principal); R05.9 Cough, unspecified; R09.82 Postnasal drip; Z03.818 Encounter for observation for suspected exposure to other biological agents ruled out; Z87.891 Personal history of nicotine dependence; Z79.899 Other long term (current) drug therapy
CPT/HCPCS: 0241U; 36415; 71046; 80053; 83880; 84484; 85025; 85610; 93005; 99283; 99284

== ENCOUNTER → 2024-04-27 19:54 | Outpatient (BNV) | payer BC, SELFPAY | PROVIDERS: Emergency Provider Emergency Medicine; PCP Family Medicine; Visit Provider Internal Medicine Cardiovascular Disease | DX: R06.02 Shortness of breath (principal) | CPT/HCPCS: 93010 ==

== ENCOUNTER → 2024-04-27 19:54 | Outpatient (BNV) | payer BC, SELFPAY | PROVIDERS: PCP Family Medicine; Visit Provider Radiology Neuroradiology | DX: R06.02 Shortness of breath (principal) | CPT/HCPCS: 71046 ==

== ENCOUNTER 2024-11-02 16:13 | Emergency (ER) | payer BC, SELFPAY ==
--- NOTE | ~2024-11-02 | XR_ITS ---
CLINICAL HISTORY: chest pain 2 view chest x-ray Comparison: CR - XR CHEST 2V - 04/27/24 20:23 EST Findings: The lungs are clear. Normal size heart. No acute fracture. IMPRESSION: 1. No acute findings. This document has been electronically signed by: Stefano German MD on 11/02/2024 18:13:43
--- NOTE | 2024-11-02 16:17 | ECG_ITS ---
Test Reason : cp Blood Pressure : */* mmHG Vent. Rate : 60 BPM Atrial Rate : 60 BPM P-R Int : 178 ms QRS Dur : 94 ms QT Int : 414 ms P-R-T Axes : 76 13 36 degrees QTcB Int : 414 ms Normal sinus rhythm Normal ECG When compared with ECG of 27-Apr-2024 20:01, No significant change was found Referred By: Generic ED Physician Electronically Signed By: GENIA BETH MD
[2024-11-02 16:46] VITALS: BP 168/79; PULSE 59; RESP 17; TEMP 36.3; O2SAT 99; BMI 29.9
--- NOTE | 2024-11-02 16:47 | ED.GENADULT ---
HPI - General Adult General Chief complaint: Upper Respiratory Symptoms Stated complaint: Difficulty breathing, Chest tightness, lungs tight Time Seen by Provider: 11/02/24 22:26 Source: patient Mode of arrival: ambulatory Limitations: no limitations History of Present Illness ED Provider: Dr. Fina Cleaning HPI narrative: 68-year-old male with a history of paroxysmal atrial fibrillation status post ablation, BPH and glaucoma presenting with right-sided chest discomfort that he describes as a feeling of congestion and a dry cough ongoing for the last 8 days or so. Had been seen at an urgent care 7 days ago and prescribed doxycycline for what was presumed to be a sinus infection. At that time, his sinuses felt clogged. He had no fever and continues to be afebrile. No sputum production with his cough. Chest discomfort was noted this morning and gradually developed throughout the day. It is not worse with exertion. Not associated with food intake. He does have a cough but has not looked at any sputum that he might have coughed up. Denies associated nausea, vomiting, bowel changes or urinary complaints. No leg swelling. Denies family history of early onset heart disease or sudden cardiac . He does not take blood thinners. He has not been in AFib since he had his ablation couple of years Related Data Home Medications ?Medication ?Instructions ?Recorded ?Confirmed finasteride 5 mg tablet 5 mg PO DAILY 07/28/21 04/10/24 loratadine 10 mg tablet (Claritin) 10 mg PO DAILY 07/28/21 04/10/24 prednisolone acetate 1 % eye 1 drp ophthalmic-Left DAILY 07/28/21 04/10/24 drops,suspension tamsulosin 0.4 mg capsule 0.4 mg PO BEDTIME 07/28/21 04/10/24 dorzolamide 22.3 mg-timolol 6.8 1 drp ophthalmic-Left BID 02/06/22 04/10/24 mg/mL eye drops melatonin 3 mg tablet 3 mg PO BEDTIME PRN Insomnia 02/06/22 04/10/24 tafluprost (PF) 0.0015 % eye drops 1 drp ophthalmic (eye) BEDTIME 02/06/22 04/10/24 in a dropperette (Zioptan (PF)) Allergies Allergy/AdvReac Type Severity Reaction Status Date / Time Penicillins Allergy Unknown unknown Verified 08/17/25 16:49 Review of Systems Review of Systems: as per HPI, full review of systems performed and negative but for the above mentioned pertinent positives and negatives. [facility] Past Medical History Medical History Afib Enlarged prostate Sleep apnea Surgical History Hx of eye surgery Family History Family History Father Pacemaker Mother No problems noted. Social History Social History Unable to assess alcohol history related to: Unknown Alcohol intake: current Alcohol intake frequency: a few times a month Comment: d/c from overflow Patient Tobacco Use Status: Former Tobacco user Years Smoked: 5 +/- Smoked in Last 30 Days: No Use of substances other than those prescribed or required for medical reasons: No Advance Directives: No Advance Directives Information Provided: No Do you have a plan to hurt others: No Plan service: No Current occupational status: employed Physical Exam ED Exam Exam: GENERAL: Well-Appearing, conversant, no acute distress. SKIN: Normal skin color for ethnicity, warm, dry, no rashes noted. HEENT: Normocephalic, atraumatic, no stridor, posterior oropharynx nonerythematous, dentition intact, EOMI. NECK: Soft, supple, full ROM, midline structures nontender, no step-offs, no deformities, no lymphadenopathy. CHEST: Heart regular rate and rhythm, no murmurs, symmetric chest rise and fall. PULMONARY: Clear to auscultation bilaterally, no labored breathing, no wheezes/rhales/rhonchi. ABDOMINAL: Soft, nondistended, nontender, positive bowel sounds in all quadrants. : Deferred. MUSCULOSKELETAL: Normal tone, full range of motion, no deformities, no peripheral edema. NEURO: Alert and oriented x3, CN II through XII intact, equal strength and sensation bilateral upper and lower extremities, no focal neurologic deficits. PSYCHIATRIC: Normal affect, fluid speech, good eye contact and appropriate demeanor. Vital Signs: Vital Signs - 24 hr 11/02/24 16:46 11/02/24 21:37 11/02/24 22:38 Temperature 97.3 F 98.1 F Pulse Rate 59 53 Respiratory Rate 17 18 Blood Pressure 168/79 H 144/89 H Pulse Oximetry 99 99 96 Oxygen Delivery Method Room Air Room Air Room Air BMI result Body Mass Index 29.9 Course Course Course Narrative: Medical screening exam performed. Please refer to detailed history, exam, evaluation, and management by primary provider. Patient with recent URI symptoms, on doxycycline. Patient with heaviness in his chest this afternoon. Check labs, EKG. Medical Decision Making Medical Decision Making [facility] Narrative: Patient presents today with a chief complaint of chest pain. Differential diagnosis includes, but is not limited to, acute coronary syndrome, musculoskeletal pain, pneumothorax, GERD, pleurisy, pulmonary embolism, dissection, among others. I will order EKG, chest x-ray, the laboratory workup including cardiac enzymes to further evaluate for etiology. Workup today is reassuring. EKG is nonischemic. Cardiac enzymes are flat. Chest x-ray is clear. His age adjusted D-dimer is low. Very low suspicion for acute cardiopulmonary process causing his chest discomfort today. I suspect that his symptoms are related to seasonal allergies which are worsening over the last week. He takes Claritin daily for this. Discussed importance of follow-up with the primary care. Using shared decision making, plan for discharge home to follow-up with primary care and/or specialist. Patient understands and agrees with plan for discharge. Discharged home in stable condition. Differential Diagnosis Differential Diagnoses: The differential diagnosis associated with the presentation includes (As above) Admission/Observation Consideration of admission/observation: Escalation of care including admission/observation considered Lab Data [facility] Lab Attestation statement: I reviewed the patient's lab results. 11/02/24 17:32 11/02/24 17:32 Labs: Lab Results 11/02/24 11/02/24 Range/Units 17:32 21:50 WBC 7.7 (4.8-10.8) X10*3/uL RBC 4.76 (4.60-5.80) X10*6/uL Hgb 14.6 (14.0-18.0) g/dl Hct 41.6 L (42.0-52.0) % MCV 87.4 (80.0-98.0) fL MCH 30.7 (27.0-33.0) pg MCHC 35.1 (31.0-36.0) g/dl RDW 12.6 (11.0-16.0) % Plt Count 211 (160-400) X10*3/uL MPV 10.0 (9.4-12.4) fL Immature Gran % (Auto) 0.3 (0.0-0.4) % Neut % (Auto) 64.0 (45-73) % Lymph % (Auto) 22.4 (20-40) % [place] % (Auto) 8.9 (2-11) % Eos % (Auto) 3.9 (0-4) % Baso % (Auto) 0.5 (0-2) % Lymph # (Auto) 1.7 (1.2-4.9) X10*3/uL [place] # (Auto) 0.7 (0.1-1.2) X10*3/uL Eos # (Auto) 0.3 (0.0-0.4) X10*3/uL Baso # (Auto) 0.0 (0.0-0.2) X10*3/uL Abs Immat Gran (auto) 0.02 (0.00-0.03) X10*3/uL Absolute Neuts (auto) 5.0 (2.0-8.3) x10*3/uL Absolute Nucleated RBC 0.000 (0.0-0.012) X10*3/uL Nucleated RBC % (auto) 0.0 (0.0-0.2) /100WBC Sodium 138 (135-145) mmol/L Potassium 3.8 (3.3-5.1) mmol/L Chloride 106 (96-108) mmol/L Carbon Dioxide 23 (22-29) mmol/L Anion Gap 13 (12-20) BUN 12 (9-16) mg/dL Creatinine 0.74 (0.5-1.4) mg/dL Estim Creat Clear Calc 116.8 Estimated GFR > 60 Random Glucose 101 (60-115) mg/dL Lactic Acid 0.8 (0.5-2.0) mmol/L Calcium 9.1 (8.4-10.2) mg/dL Total Bilirubin 0.5 (0.0-1.0) mg/dL AST 24 (5-37) U/L ALT 21 (0-40) U/L Alkaline Phosphatase 60 (39-117) U/L Troponin I High Sens 4.2 4.7 (<3.5-35.0) ng/L B-Natriuretic Peptide 39 (<100) pg/mL Total Protein 6.4 L (6.5-8.0) g/dL Albumin 4.3 (3.5-5.0) g/dL Independent Interpretation I performed an independent interpretation of an: EKG and Plain X-Ray Interpretation: My independent interpretation of the ECG reveals normal sinus bradycardia with rate of 51, normal axis, normal intervals, no ST elevations or depressions to suggest ischemic changes, relatively unchanged from previous on 04/27/2024. My independent interpretation of the chest x-ray reveals no consolidations, pulmonary edema, pleural effusion, pneumothorax, obvious bony abnormalities. Radiology Impression Discussion of test interpretation with radiology: I have reviewed the radiologist's reading. Chronic Conditions Patient?s care impacted by: Other (Paroxysmal atrial fibrillation, glaucoma) Scores Heart Score History: -0- slightly suspicious ECG: -0- normal Age: -2- > or = 65 Risk factory: -0- no risk factors known Troponin: -0- < or = normal limit Score: 2 Risk: 1.7% Discharge Plan Discharge Clinical Impression: Chest congestion Patient Disposition: Home, Self-Care Additional Instructions: DIAGNOSIS & TREATMENT: You were seen in the Emergency Department for your chest discomfort. We performed an EKG, laboratory work and chest xray which did not reveal any acute abnormalities that would explain your symptoms. FURTHER CARE: We have not found any emergent physical exam or lab abnormalities that would require admission to the hospital today. Many people who come to the ER with chest discomfortn do not leave with a specific diagnosis at the end of their visit. In the Emergency Department we try to make sure that there is no emergent problem that needs admission to the hospital or antibiotics right now. This does not mean that your evaluation is complete--please be sure to follow up with your regular doctor as additional testing as an outpatient may be indicated. Please be certain to drink plenty of fluids over the next several days. WHEN YOU SHOULD BE SEEN NEXT: Please follow-up with your primary care provider within the next 2-3 days for reevaluation of your symptoms. WHEN TO RETURN TO THE ED: Monitor your symptoms closely and return to the emergency department immediately for any new/worsening symptoms including: Worsening chest pain, difficulty breathing, fevers greater than 100 degrees, passing out, any new symptom that concerns you. Call 911 with any medical emergency. Prescriptions: No Action dorzolamide-timolol 22.3-6.8 mg/mL drops 1 drp ophthalmic-Left BID Zioptan (PF) 0.0015 % dropperette 1 drp ophthalmic (eye) BEDTIME melatonin 3 mg Tablet 3 mg PO BEDTIME PRN (Reason: Insomnia) tamsulosin 0.4 mg capsule 0.4 mg PO BEDTIME finasteride 5 mg tablet 5 mg PO DAILY prednisolone acetate 1 % drops,suspension 1 drp ophthalmic-Left DAILY loratadine [Claritin] 10 mg tablet 10 mg PO DAILY Print Language: Russian
[2024-11-02 17:40] LABS: MANUAL DIFF FLAG NO
[2024-11-02 17:41] LABS: Hematocrit 41.6 % (42.0-52.0); Hemoglobin 14.6 g/dl (14.0-18.0); Imm Gran Abs Auto 0.02 X10*3/uL (0.00-0.03); Imm Gran Pct Auto 0.3 % (0.0-0.4); Lymphocytes Absolute Auto 1.7 X10*3/uL (1.2-4.9); Mean Corpuscular HGB Conc 35.1 g/dl (31.0-36.0); Mean Corpuscular Hemoglobin 30.7 pg (27.0-33.0); Mean Corpuscular Volume 87.4 fL (80.0-98.0); NRBC Abs Auto 0.000 X10*3/uL (0.0-0.012); NRBC Pct Auto 0.0 /100WBC (0.0-0.2); Platelet Count 211 X10*3/uL (160-400); Red Blood Count 4.76 X10*6/uL (4.60-5.80); White Blood Count 7.7 X10*3/uL (4.8-10.8)
[2024-11-02 17:55] LABS: Alanine Aminotransferase 21 U/L (0-40); Albumin Level 4.3 g/dL (3.5-5.0); Alkaline Phosphatase 60 U/L (39-117); Anion Gap 13 (12-20); Aspartate Amino Transferase 24 U/L (5-37); Blood Urea Nitrogen 12 mg/dL (9-16); Calcium 9.1 mg/dL (8.4-10.2); Carbon Dioxide 23 mmol/L (22-29); Chloride 106 mmol/L (96-108); Creatinine Clr Calc Pharmacy 116.8; Estimated Glomerular Filt Rate > 60; Potassium 3.8 mmol/L (3.3-5.1); Sodium 138 mmol/L (135-145); Total Protein 6.4 g/dL (6.5-8.0)
[2024-11-02 18:01] LABS: B Type Natriuretic Peptide 39 pg/mL (<100)
[2024-11-02 18:02] LABS: Troponin-I High Sensitivity 4.2 ng/L (<3.5-35.0)
[2024-11-02 21:37] VITALS: BP 144/89; PULSE 53; RESP 18; TEMP 36.7; O2SAT 99
--- NOTE | 2024-11-02 21:38 | ECG_ITS ---
Test Reason : bradycardia Blood Pressure : */* mmHG Vent. Rate : 51 BPM Atrial Rate : 51 BPM P-R Int : 170 ms QRS Dur : 96 ms QT Int : 452 ms P-R-T Axes : 52 27 44 degrees QTcB Int : 416 ms Sinus bradycardia Otherwise normal ECG When compared with ECG of 02-Nov-2024 16:38, No significant change was found Referred By: Generic ED Physician Electronically Signed By: GENIA BETH MD
--- NOTE | 2024-11-02 21:39 | PC.NURSE ---
during triage reassessment pt reports chest heaviness/ labored breathing. resp are even and unlabored. HR noted to be 50-52. repeat ekg and trop ordered. pt awaits bed availability at this time.
[2024-11-02 22:17] LABS: Troponin-I High Sensitivity 4.7 ng/L (<3.5-35.0)
[2024-11-02 22:38] VITALS: O2SAT 96
[2024-11-02] MEDS: guaiFENesin LA 600 MG TAB.ER.12H PO (23:32)
[2024-11-02 23:35] VITALS: BP 131/70; PULSE 50; TEMP 36.7; O2SAT 99
[2024-11-02 23:37] LABS: D Dimer High Sensitivity 313 NG/ML
[2024-11-03 00:30] VITALS: BP 123/69; PULSE 55; RESP 16; TEMP 36.4; O2SAT 98
== END 2024-11-03 00:31 | disposition home or self-care (01) ==
PROVIDERS: Physician Assistant; Emergency Provider Emergency Medicine; PCP Family Medicine
DX: R09.89 Other specified symptoms and signs involving the circulatory and respiratory systems (principal); R07.9 Chest pain, unspecified; R05.9 Cough, unspecified; I48.0 Paroxysmal atrial fibrillation; Z79.899 Other long term (current) drug therapy
CPT/HCPCS: 36415; 71046; 80053; 83605; 83880; 84484; 85025; 85379; 87040; 93005; 99283; 99285

== ENCOUNTER → 2024-11-02 16:17 | Outpatient (BNV) | payer BC, SELFPAY | PROVIDERS: Emergency Provider Emergency Medicine; PCP Family Medicine; Visit Provider Internal Medicine Cardiovascular Disease | DX: R07.89 Other chest pain (principal); R00.1 Bradycardia, unspecified | CPT/HCPCS: 93010 ==

== ENCOUNTER → 2024-11-02 16:47 | Outpatient (BNV) | payer BC, SELFPAY | PROVIDERS: Visit Provider Radiology Diagnostic Radiology | DX: R07.9 Chest pain, unspecified (principal) | CPT/HCPCS: 71046 ==